=== PATIENT | female | born 1975 | race African-American/Black ===

== ENCOUNTER 2017-08-03 15:54 | Inpatient (IN) | payer OTHER ==
[2017-08-03 18:55] VITALS: BMI 25.2
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
[2017-08-03] MEDS ORDERED: MAG HYDROX/AL HYDROX/SIMETH 30 ML UNIT-DOSE CUP PO PRN (20:53)
[2017-08-03] MEDS ORDERED: LOPERAMIDE HCL 2 MG CAPSULE PO PRN (20:53)
[2017-08-03] MEDS ORDERED: MENTHOL/PHENOL 1 EACH UD MM PRN (20:53)
[2017-08-03] MEDS ORDERED: NICOTINE POLACRILEX 4 MG GUM BUC PRN (20:53)
[2017-08-03] MEDS ORDERED: guaiFENesin/D-METHORPHAN HB 10 ML UNIT-DOSE CUPS PO PRN (20:53)
[2017-08-03] MEDS ORDERED: MAGNESIUM CITRATE 300 ML BOTTLE PO PRN (20:53)
[2017-08-03] MEDS ORDERED: MAGNESIUM HYDROX 2400MG/30ML ORAL SUSPENSION 30 ML CUP PO PRN (20:53)
[2017-08-03] MEDS ORDERED: diphenhydrAMINE HCL 50 MG CAPSULE PO PRN (20:53)
[2017-08-03] MEDS ORDERED: P-EPHED 60MG/TRIPROLIDI 2.5MG TABLET PO PRN (20:53)
[2017-08-03] MEDS ORDERED: COLLOIDAL OATMEAL 1 BAR EACH TP PRN (20:56)
[2017-08-03] MEDS ORDERED: BENZOCAINE 28 GM HEMORRHOIDAL OINTMENT PR PRN (20:58)
[2017-08-03] MEDS: THIAMINE HCL 100 MG TABLET (FP) PO SCH (23:13)
[2017-08-03] MEDS: chlordiazePOXIDE HCL 25 MG CAPSULE PO SCH (23:13)
[2017-08-03] MEDS: LIDOCAINE PATCH REMOVAL MC SCH (23:14)
[2017-08-03] MEDS: RANITIDINE HCL 150 MG TABLET (FP) PO SCH (23:14)
[2017-08-03] MEDS: BACLOFEN 10 MG TABLET (FP) PO SCH (23:14)
[2017-08-03] MEDS: MINERAL OIL/PETROLAT/WATER TOPICAL CREAM 113 GM JAR TP SCH (23:14)
[2017-08-04] MEDS: chlordiazePOXIDE HCL 25 MG CAPSULE PO SCH ×4 (08:23→22:35)
[2017-08-04] MEDS: BACLOFEN 10 MG TABLET (FP) PO SCH ×3 (08:23→22:35)
--- NOTE | 2017-08-04 09:49 | PN ---
S CIWA - CIWA Score Nausea/Vomitin Muscle Tremors: 3 Anxiety: 3 Agitation: 3 Paroxysmal Sweats: 1-Minimal Palms Moist Orientation: 0-Oriented Tacttile Disturbances: 1-Very Mild Itch/Numbness Auditory Disturbances: 1-Very Mild Visual Disturbances: 0-None Headache: 2-Mild CIWA-Ar Total Score: 17 BHS Progress Note (SOAP) Subjective: alert,irritable,anxious interrupted sleep,tremor,pain in the body and back Objective: 08/04/17 09:47 Vital Signs Temperature 98.3 F 08/04/17 06:13 Pulse Rate 55 L 08/04/17 06:13 Respiratory Rate 16 08/04/17 06:13 Blood Pressure 130/90 08/04/17 06:13 O2 Sat by Pulse Oximetry (%) ekg nsr,normal ecg iabs pending Assessment: 08/04/17 09:48 withdrawal symptom Plan: continue detox
[2017-08-04 10:12] LABS: MCH 26.7 pg (25.7-33.7); MCHC 32.5 g/dl (32.0-36.0); MEAN CELL VOLUME 82.1 fl (80-96); MEAN PLT VOLUME 7.4 fl (7.5-11.1); PLATELET COUNT 352 K/MM3 (134-434); RDW 22.4 % (11.6-15.6); WHITE BLOOD COUNT 3.3 K/mm3 (4.0-10.0)
[2017-08-04] MEDS: PRENATAL VITAMINS W/ FOLIC ACID TABLET (FP) PO SCH (10:17)
[2017-08-04] MEDS: FERROUS SO4 325 MG TABLET (FP) PO SCH ×3 (10:17→17:03)
[2017-08-04] MEDS: RANITIDINE HCL 150 MG TABLET (FP) PO SCH ×2 (10:17→22:35)
[2017-08-04] MEDS: NICOTINE 21 MG/24 HOURS TOPICAL PATCH TD SCH (10:17)
[2017-08-04 10:31] LABS: ALBUMIN 3.2 g/dl (3.4-5.0); ANION GAP 9 (8-16); CALCIUM 8.4 mg/dL (8.5-10.1); CO2 27 mmol/L (21-32); GLUCOSE,RANDOM 76 mg/dL (74-106)
[2017-08-04 10:35] LABS: ALK PHOS 61 U/L (45-117); BILIRUBIN,TOTAL 0.4 mg/dL (0.2-1.0); CREATININE 0.6 mg/dL (0.55-1.02); SGOT/AST 15 U/L (15-37); SGPT/ALT 16 U/L (12-78); TOT PROT 6.2 g/dl (6.4-8.2)
--- NOTE | 2017-08-04 11:28 | CONSULT ---
[facility] Psychiatric Consult - Data Date of interview: 08/04/17 Admission source: [facility] Identifying data: First admission to [facility] for this 41 y/o AA female seeking detox treatment on for alcohol,cocaine and marihuana dependence.Patient is ,a mother of two,homeless,unemployed and supported on SSI benefits. Substance Abuse History: Discussed with the patient.Addictions confirmed. Smoking history: Current every day smoker. Have you smoked in the past 12 months: Yes. Aproximately how many cigarettes per day: 40. Cigars Per Day: 0. Hx Chewing Tobacco Use: No. Initiated information on smoking cessation: Yes. 'Breaking Loose' booklet given: 08/03/17. - Substance & Tx. History. Hx Alcohol Use: Yes. Hx Substance Use: Yes. Substance Use Type: Alcohol, Cocaine , Marijuana. Hx Substance Use Treatment: No. - Substances Abused. Alcohol. Route: Oral. Frequency: Daily. Amount used: 3 quarts volka. Age of first use: 21. Date of Last Use: 08/03/17 Medical History: Consistent with a history of anemia,GERD,gastric bypass, chronic back pain and orthosurgery in 2012 (lumbar spine). Psychiatric History: History of psychiatric hospitalizations ([facility], [facility]).Diagnosed with Bipolar Disorder.Used to be on seroquel and trazodone.Patient reports total non-adherence to OPD care.Ms Arroyo endorses a history of multiple suicide attempts (overdoses with medications,self- mutilation). Physical/Sexual Abuse/Trauma History: Not discussed : patient declines. Additional Comment: Urine Drug Screen Results: THC-Marijuana, JILLIAN-Cocaine, MET- Methamphetamine, TCA-Tricyclic Antidepressant.Noted. Mental Status Exam - Mental Status Exam Alert and Oriented to: Time, Place, Person Cognitive Function: Good Patient Appearance: Well Groomed Mood: Hopeful, Euthymic Affect: Normal Range Patient Behavior: Appropriate, Cooperative Speech Pattern: Clear Voice Loudness: Normal Thought Process: Intact, Goal Oriented Thought Disorder: Not Present Hallucinations: Denies Suicidal Ideation: Denies Homicidal Ideation: Denies Insight/Judgement: Poor Sleep: Poorly, Difficulty falling asleep Appetite: Good Muscle strength/Tone: Normal Gait/Station: Normal Psychiatric Findings - Problem List ([place] 1, 2,3) (1) Alcohol dependence with uncomplicated withdrawal Current Visit: Yes Status: Acute (2) Cocaine dependence Current Visit: Yes Status: Acute (3) Marihuana dependence Current Visit: Yes Status: Acute (4) Substance induced mood disorder Current Visit: Yes Status: Acute (5) Anemia Current Visit: Yes Status: Chronic Qualifiers: Anemia type: iron deficiency Iron deficiency anemia type: inadequate dietary iron intake Qualified Code(s): D50.8 - Other iron deficiency anemias; D50.8 - Other iron deficiency anemias (6) Chronic back pain Current Visit: Yes Status: Chronic Qualifiers: Back pain location: low back pain Back pain laterality: bilateral Sciatica presence: without sciatica Qualified Code(s): M54.5 - Low back pain; M54.5 - Low back pain; G89.29 - Other chronic pain; G89.29 - Other chronic pain (7) GERD (gastroesophageal reflux disease) Current Visit: Yes Status: Chronic Qualifiers: Esophagitis presence: without esophagitis Qualified Code(s): K21.9 - Gastro-esophageal reflux disease without esophagitis; K21.9 - Gastro- esophageal reflux disease without esophagitis; K21.9 - Gastro-esophageal reflux disease without esophagitis (8) Irritable bowel syndrome (IBS) Current Visit: Yes Status: Chronic Qualifiers: Irritable bowel syndrome type: with diarrhea Qualified Code(s): K58.0 - Irritable bowel syndrome with diarrhea; K58.0 - Irritable bowel syndrome with diarrhea (9) Insomnia Current Visit: Yes Status: Acute - Initial Treatment Plan Initial Treatment Plan: Psychoeducation.Detoxification.Medications : seroquel 50 mg po hs + trazodone 50 mg po hs.Side effects/benefits are discussed with the patient.She agrees with this careplan.Observation.
[2017-08-04] MEDS: LIDOCAINE 5% TOPICAL PATCH TP SCH (12:09)
[2017-08-04] MEDS: ACETAMINOPHEN 325 MG TABLET (FP) PO PRN ×2 (12:21→17:03)
[2017-08-04 12:28] LABS: HIV 1 & 2 AB NEGATIVE; HIV 1 AGp24 NEGATIVE
[2017-08-04] MEDS: chlordiazePOXIDE HCL 25 MG CAPSULE PO PRN (12:49)
[2017-08-04] MEDS: hydrOXYzine PAMOATE 50 MG CAPSULE (FP) PO PRN ×2 (15:03→20:00)
--- NOTE | 2017-08-04 20:28 | EKG ---
Test Reason : Blood Pressure : / mmHG Vent. Rate : 072 BPM Atrial Rate : 072 BPM P-R Int : 176 ms QRS Dur : 092 ms QT Int : 408 ms P-R-T Axes : 053 068 064 degrees QTc Int : 446 ms N[address]AL SINUS RHYTHM ST ELEVATION, CONSIDER EARLY REPOLARIZATION NO PREVIOUS ECGS AVAILABLE REPEAT EKG IF CLINICALLY INDICATED Confirmed by MADDIE AMAYA MD ([id number]) on 08/04/2017 8:27:42 PM Referred By: Confirmed By:MADDIE AMAYA MD
[2017-08-04] MEDS: THIAMINE HCL 100 MG TABLET (FP) PO SCH (22:35)
[2017-08-04] MEDS: traZODone HCL 50 MG TABLET (FP) PO SCH (22:35)
[2017-08-04] MEDS: QUEtiapine FUMARATE 50 MG TABLET PO SCH (22:35)
[2017-08-04] MEDS: LIDOCAINE PATCH REMOVAL MC SCH (22:37)
[2017-08-04] MEDS: MINERAL OIL/PETROLAT/WATER TOPICAL CREAM 113 GM JAR TP SCH (22:37)
[2017-08-05] MEDS: chlordiazePOXIDE HCL 25 MG CAPSULE PO PRN ×2 (01:09→14:17)
[2017-08-05] MEDS: ACETAMINOPHEN 325 MG TABLET (FP) PO PRN ×5 (01:09→22:21)
[2017-08-05] MEDS: LIDOCAINE VISCOUS 2% ORAL/TOP 20 ML UNIT-DOSE CUP MM PRN ×3 (02:27→22:14)
[2017-08-05] MEDS: chlordiazePOXIDE HCL 25 MG CAPSULE PO SCH ×3 (05:16→17:08)
[2017-08-05] MEDS: BACLOFEN 10 MG TABLET (FP) PO SCH ×3 (05:16→22:13)
[2017-08-05] MEDS: FERROUS SO4 325 MG TABLET (FP) PO SCH ×3 (07:40→17:08)
[2017-08-05] MEDS: hydrOXYzine PAMOATE 50 MG CAPSULE (FP) PO PRN (08:44)
[2017-08-05] MEDS: RANITIDINE HCL 150 MG TABLET (FP) PO SCH ×2 (10:38→22:14)
[2017-08-05] MEDS: PRENATAL VITAMINS W/ FOLIC ACID TABLET (FP) PO SCH (10:38)
[2017-08-05] MEDS: NICOTINE 21 MG/24 HOURS TOPICAL PATCH TD SCH (10:40)
[2017-08-05] MEDS: LIDOCAINE 5% TOPICAL PATCH TP SCH (10:43)
--- NOTE | 2017-08-05 11:07 | PN ---
[facility] CIWA - CIWA Score Nausea/Vomitin Muscle Tremors: 3 Anxiety: 3 Agitation: 3 Paroxysmal Sweats: 1-Minimal Palms Moist Orientation: 0-Oriented Tacttile Disturbances: 1-Very Mild Itch/Numbness Auditory Disturbances: 1-Very Mild Visual Disturbances: 0-None Headache: 2-Mild CIWA-Ar Total Score: 17 BHS Progress Note (SOAP) Subjective: alert,irritable,anxious,interrupted sleep,pain in the body,pain in the upper gum ,dental cavities infected Objective: 08/05/17 11:00 Vital Signs Temperature 98.1 F 08/05/17 09:59 Pulse Rate 76 08/05/17 09:59 Respiratory Rate 16 08/05/17 09:59 Blood Pressure 116/73 08/05/17 09:59 O2 Sat by Pulse Oximetry (%) Laboratory Last Values WBC 3.3 K/mm3 (4.0-10.0) L 08/04/17 07:00 RBC 4.30 M/mm3 (3.60-5.2) 08/04/17 07:00 Hgb 11.5 GM/dL (10.7-15.3) 08/04/17 07:00 Hct 35.3 % (32.4-45.2) 08/04/17 07:00 MCV 82.1 fl (80-96) 08/04/17 07:00 MCH 26.7 pg (25.7-33.7) 08/04/17 07:00 MCHC 32.5 g/dl (32.0-36.0) 08/04/17 07:00 RDW 22.4 % (11.6-15.6) H 08/04/17 07:00 Plt Count 352 K/MM3 (134-434) 08/04/17 07:00 MPV 7.4 fl (7.5-11.1) L 08/04/17 07:00 Sodium 127 mmol/L (136-145) L 08/04/17 07:00 Potassium 4.4 mmol/L (3.5-5.1) 08/04/17 07:00 Chloride 91 mmol/L (98-107) L 08/04/17 07:00 Carbon Dioxide 27 mmol/L (21-32) 08/04/17 07:00 Anion Gap 9 (8-16) 08/04/17 07:00 BUN 9 mg/dL (7-18) 08/04/17 07:00 Creatinine 0.6 mg/dL (0.55-1.02) 08/04/17 07:00 Creat Clearance w eGFR > 60 (>60) 08/04/17 07:00 Random Glucose 76 mg/dL (74-106) 08/04/17 07:00 Calcium 8.4 mg/dL (8.5-10.1) L 08/04/17 07:00 Total Bilirubin 0.4 mg/dL (0.2-1.0) 08/04/17 07:00 AST 15 U/L (15-37) 08/04/17 07:00 ALT 16 U/L (12-78) 08/04/17 07:00 Alkaline Phosphatase 61 U/L (45-117) 08/04/17 07:00 Total Protein 6.2 g/dl (6.4-8.2) L 08/04/17 07:00 Albumin 3.2 g/dl (3.4-5.0) L 08/04/17 07:00 RPR Titer Nonreactive (NONREACTIVE) 08/04/17 07:00 HIV 1&2 Antibody Screen Negative 08/04/17 07:00 HIV P24 Antigen Negative 08/04/17 07:00 Assessment: 08/05/17 11:02 withdrawal symptom Plan: continue detox,pen vee k 500 mgs po q 6 hrs x 7 days,diatician consultation,na 127 hyponatremia,wbc 3.3 leukopenia, repeat cbc,cmp in am
[2017-08-05] MEDS: PENICILLIN V POTASSIUM 500 MG TABLET PO SCH ×3 (11:33→23:20)
[2017-08-05] MEDS: ONDANSETRON *ODT* 4 MG TABLET SL PRN (14:58)
[2017-08-05] MEDS: QUEtiapine FUMARATE 50 MG TABLET PO SCH (22:14)
[2017-08-05] MEDS: traZODone HCL 50 MG TABLET (FP) PO SCH (22:14)
[2017-08-05] MEDS: THIAMINE HCL 100 MG TABLET (FP) PO SCH (22:14)
[2017-08-05] MEDS: chlordiazePOXIDE 5 MG CAPSULE PO SCH (22:14)
[2017-08-05] MEDS: LIDOCAINE PATCH REMOVAL MC SCH (22:15)
[2017-08-05] MEDS: MINERAL OIL/PETROLAT/WATER TOPICAL CREAM 113 GM JAR TP SCH (22:16)
[2017-08-06] MEDS: chlordiazePOXIDE 5 MG CAPSULE PO SCH ×2 (06:02→10:16)
[2017-08-06] MEDS: BACLOFEN 10 MG TABLET (FP) PO SCH (06:02)
[2017-08-06] MEDS: PENICILLIN V POTASSIUM 500 MG TABLET PO SCH ×2 (06:02→12:20)
[2017-08-06] MEDS: ACETAMINOPHEN 325 MG TABLET (FP) PO PRN (06:04)
[2017-08-06] MEDS: FERROUS SO4 325 MG TABLET (FP) PO SCH ×2 (07:44→12:20)
--- NOTE | 2017-08-06 09:39 | PN ---
S Progress Note (SOAP) Subjective: alert,irritable,anxious,interrupted sleep Objective: 08/06/17 09:39 Vital Signs Temperature 97.7 F 08/06/17 06:32 Pulse Rate 56 L 08/06/17 06:32 Respiratory Rate 16 08/06/17 06:32 Blood Pressure 115/67 08/06/17 06:32 O2 Sat by Pulse Oximetry (%) 08/06/17 09:39 08/06/17 09:40 repeat cbc,cmp pending Assessment: 08/06/17 09:40 withdrawal symptom Plan: continue detox
[2017-08-06 09:53] VITALS: BP 92/56; PULSE 76; TEMP 97
[2017-08-06 10:07] LABS: MCH 26.7 pg (25.7-33.7); MCHC 32.5 g/dl (32.0-36.0); MEAN CELL VOLUME 82.3 fl (80-96); MEAN PLT VOLUME 7.8 fl (7.5-11.1); PLATELET COUNT 330 K/MM3 (134-434); RDW 22.2 % (11.6-15.6); WHITE BLOOD COUNT 3.8 K/mm3 (4.0-10.0)
[2017-08-06] MEDS: hydrOXYzine PAMOATE 50 MG CAPSULE (FP) PO PRN (10:16)
[2017-08-06] MEDS: PRENATAL VITAMINS W/ FOLIC ACID TABLET (FP) PO SCH (10:16)
[2017-08-06] MEDS: ONDANSETRON *ODT* 4 MG TABLET SL PRN (10:16)
[2017-08-06] MEDS: NICOTINE 21 MG/24 HOURS TOPICAL PATCH TD SCH (10:16)
[2017-08-06] MEDS: RANITIDINE HCL 150 MG TABLET (FP) PO SCH (10:16)
[2017-08-06] MEDS ORDERED: QUEtiapine FUMARATE 100 MG TABLET (FP) PO STA (10:30)
[2017-08-06] MEDS ORDERED: QUEtiapine FUMARATE 50 MG TABLET PO STA (10:30)
--- NOTE | 2017-08-06 10:46 | PN ---
Psychiatric Progress Note Vital Signs: Vital Signs Period Temp Pulse Resp BP Sys/[place] Pulse Ox Last 24 Hr 96.8 F-98.2 F 56-83 16-18 92-115/56-77 Date of Session: 08/06/17 Chief Complaint:: medications orders HPI: Patient reprots taking priormto admission: Seroquel 100mg po bid. Trazodone 100mg po qhs Current Medications: Active Medications Generic Name Dose Route Start Last Admin Trade Name Freq PRN Reason Stop Dose Admin Acetaminophen 650 mg 08/03/17 20:53 08/06/17 06:04 Tylenol - PO 650 mg Q4H PRN Administration FEVER OR PAIN Al Hydroxide/Mg Hydroxide 30 ml 08/03/17 20:53 Mylanta Oral Suspension - PO Q6H PRN DYSPEPSIA Baclofen 10 mg 08/03/17 22:00 08/06/17 06:02 Lioresal - PO 10 mg TID PRISCILLA Administration Benzocaine 1 applic 08/03/17 20:58 08/05/17 22:17 Americaine Ointment - WI 1 applic PRN PRN Administration PAIN Chlordiazepoxide HCl 10 mg 08/06/17 23:00 Librium - PO 08/07/17 17:01 [id number] PRISCILLA Chlordiazepoxide HCl 25 mg 08/03/17 20:53 08/05/17 14:17 Librium - PO 08/06/17 20:52 25 mg Q4H PRN Administration WITHDRAWAL(CONT SUBST) Chlordiazepoxide HCl 15 mg 08/05/17 23:00 08/06/17 10:16 Librium - PO 08/06/17 17:01 15 mg [id number] PRISCILLA Administration Colloidal Oatmeal 1 applic 08/03/17 20:56 08/04/17 11:41 Aveeno Soap - TP 1 applic DAILY PRN Administration HYGEINE Diphenhydramine HCl 50 mg 08/03/17 20:53 08/05/17 01:09 Benadryl - PO 50 mg HSMR1 PRN Administration INSOMNIA Eucalyptus/Menthol/Phenol/Sorbitol 1 each 08/03/17 20:53 Cepastat Lozenge - MM Q4H PRN SORE THROAT Ferrous Sulfate 325 mg 08/04/17 08:00 08/06/17 07:44 Feosol - PO 325 mg TIDCM PRISCILLA Administration Guaifenesin 10 ml 08/03/17 20:53 Robitussin Dm - PO Q6H PRN COUGH Hydroxyzine Pamoate 50 mg 08/04/17 14:21 08/06/17 10:16 Vistaril - PO 50 mg Q4H PRN Administration ANXIETY Lidocaine 1 patch 08/04/17 10:00 08/05/17 10:43 Lidoderm Patch - TP 1 patch DAILY PRISCILLA Administration Lidocaine HCl 20 ml 08/05/17 02:13 08/05/17 22:14 Xylocaine 2% Viscous Oral - MM 20 ml Q6HPO PRN Administration ORAL PAIN/MOUTH SORES Loperamide HCl 4 mg 08/03/17 20:53 Imodium - PO Q6H PRN DIARRHEA Magnesium Citrate 300 ml 08/03/17 20:53 Citroma - PO Q48H PRN CONSTIPATION Magnesium Hydroxide 30 ml 08/03/17 20:53 Milk Of Magnesia - PO DAILY PRN CONSTIPATION Miscellaneous 1 each 08/03/17 22:00 08/05/17 22:15 Lidoderm Patch Removal MC 1 each DAILY@2200 PRISCILLA Administration Multi-Ingredient Lotion 1 applic 08/03/17 22:00 08/05/17 22:16 Eucerin (Small Jar) - TP 1 applic HS PRISCILLA Administration Nicotine 21 mg 08/04/17 10:00 08/06/17 10:16 Nicoderm Patch - TD 21 mg DAILY PRISCILLA Administration Nicotine Polacrilex 4 mg 08/03/17 20:53 08/05/17 11:15 Nicorette Gum - BUC 4 mg Q2H PRN Administration NICOTINE REPLACEMENT RX Ondansetron HCl 4 mg 08/05/17 14:41 08/06/17 10:16 Zofran Odt - SL 4 mg Q6H PRN Administration NAUSEA AND/OR VOMITING Penicillin V Potassium 500 mg 08/05/17 12:00 08/06/17 06:02 Pen Vee K - PO 500 mg Q6HPO PRISCILLA Administration Multivit/Folic Acid/Iron 1 tab 08/04/17 10:00 08/06/17 10:16 Vitamins (Sjr) - PO 1 tab DAILY PRISCILLA Administration Pseudoephedrine/Triprolidine 1 combo 08/03/17 20:53 08/04/17 12:51 Actifed - PO 1 combo TID PRN Administration NASAL CONGESTION Quetiapine Fumarate 100 mg 08/06/17 22:00 Seroquel - PO BID PRISCILLA Ranitidine HCl 150 mg 08/03/17 22:00 08/06/17 10:16 Zantac - PO 150 mg BID PRISCILLA Administration Thiamine HCl 100 mg 08/03/17 22:00 08/05/17 22:14 Vitamin B1 - PO 100 mg HS PRISCILLA Administration Trazodone HCl 100 mg 08/06/17 22:00 Desyrel - PO HS PRISCILLA Medication(s) Change(s): Seroquel 100mg po bid. Trazodone 100mg po qhs Mental Status Exam - Mental Status Exam Alert and Oriented to: Person Cognitive Function: Fair Patient Appearance: Well Groomed Mood: Anxious Affect: Mood Congruent Patient Behavior: Cooperative Speech Pattern: Appropriate Voice Loudness: Normal Thought Process: Circumstantial, Goal Oriented Thought Disorder: Being Controlled Hallucinations: Denies Suicidal Ideation: Denies Homicidal Ideation: Denies Insight/Judgement: Fair Sleep: Difficulty falling asleep Appetite: Fair Muscle strength/Tone: Normal Gait/Station: Normal Additional Comments: Seroquel 100mg po bid. Trazodone 100mg po qhs Psychiatric Treatment Plan - Problem List (1) Alcohol dependence with uncomplicated withdrawal Current Visit: Yes (2) Cocaine dependence Current Visit: Yes (3) Marihuana dependence Current Visit: Yes (4) Substance induced mood disorder Current Visit: Yes (5) Irritable bowel syndrome (IBS) Current Visit: Yes Qualifiers: Irritable bowel syndrome type: with diarrhea Qualified Code(s): K58.0 - Irritable bowel syndrome with diarrhea; K58.0 - Irritable bowel syndrome with diarrhea (6) Bipolar II disorder Current Visit: Yes (7) S/P gastric bypass Current Visit: Yes Initial treatment plan: Seroquel 100mg po bid. Trazodone 100mg po qhs
[2017-08-06 10:51] LABS: ALBUMIN 3.3 g/dl (3.4-5.0); ALK PHOS 53 U/L (45-117); ANION GAP 8 (8-16); BILIRUBIN,TOTAL 0.2 mg/dL (0.2-1.0); CALCIUM 8.6 mg/dL (8.5-10.1); CO2 27 mmol/L (21-32); CREATININE 0.6 mg/dL (0.55-1.02); GLUCOSE,RANDOM 77 mg/dL (74-106); SGOT/AST 16 U/L (15-37); SGPT/ALT 18 U/L (12-78); TOT PROT 6.4 g/dl (6.4-8.2)
--- NOTE | 2017-08-06 11:05 | PN ---
BHS Progress Note Note: addendum patient is stable for discharge to rehab
--- NOTE | 2017-08-06 11:12 | DS ---
[facility] Detox Discharge Summary Admission Date: 08/03/17 Discharge Date: 08/06/17 - History Present History: Alcohol Dependence Pertinent Past History: gerd chronic back pain s/p gastric by pass hyponatremia - Physical Exam Results Vital Signs: Vital Signs Temperature 97.0 F L 08/06/17 09:52 Pulse Rate 76 08/06/17 09:52 Respiratory Rate 18 08/06/17 09:52 Blood Pressure 92/56 08/06/17 09:52 O2 Sat by Pulse Oximetry (%) Pertinent Admission Physical Exam Findings: withdrawal symptom - Treatment Hospital Course: Detox Protocol Followed, Detoxed Safely, Responded well, Discharged Condition Good, Rehab Referral Accepted (rehab) - Medication Discharge Medications: Ambulatory Orders Iron,Carbonyl/Vit C/Vit B12/FA [Iron 100 Plus Tablet] 1 each PO DAILY 08/03/17 Omeprazole 40 mg PO DAILY 08/03/17 Quetiapine Fumarate [Seroquel -] 50 mg PO BID 08/03/17 - Diagnosis (1) Alcohol dependence with uncomplicated withdrawal Current Visit: Yes Status: Acute (2) Chronic back pain Current Visit: Yes Status: Chronic Qualifiers: Back pain location: low back pain Back pain laterality: bilateral Sciatica presence: without sciatica Qualified Code(s): M54.5 - Low back pain; M54.5 - Low back pain; G89.29 - Other chronic pain; G89.29 - Other chronic pain (3) GERD (gastroesophageal reflux disease) Current Visit: Yes Status: Chronic Qualifiers: Esophagitis presence: without esophagitis Qualified Code(s): K21.9 - Gastro-esophageal reflux disease without esophagitis; K21.9 - Gastro- esophageal reflux disease without esophagitis; K21.9 - Gastro-esophageal reflux disease without esophagitis (4) S/P gastric bypass Current Visit: Yes Status: Resolved (5) Hyponatremia Current Visit: Yes Status: Acute - AMA Did Patient Leave Against Medical Advice: No
[2017-08-06] MEDS: LIDOCAINE 5% TOPICAL PATCH TP SCH (11:16)
[2017-08-06 14:55] LABS: URINE APPEARANCE CLEAR; URINE BILIRUBIN NEGATIVE (NEGATIVE); URINE BLOOD NEGATIVE (NEGATIVE); URINE COLOR LT. YELLOW; URINE GLUCOSE (UA) NEGATIVE (NEGATIVE); URINE KETONE NEGATIVE (NEGATIVE); URINE NITRITE NEGATIVE (NEGATIVE); URINE PROTEIN NEGATIVE (NEGATIVE); URINE UROBILINOGEN 0.2 mg/dL (0.2-1.0)
[2017-08-06 19:17] LABS: URINE LEUK ESTERASE Negative (NEGATIVE)
[2017-08-06] MEDS ORDERED: QUEtiapine FUMARATE 100 MG TABLET (FP) PO SCH (22:00)
[2017-08-06] MEDS ORDERED: QUEtiapine FUMARATE 50 MG TABLET PO SCH (22:00)
[2017-08-06] MEDS ORDERED: traZODone HCL 100 MG TABLET (FP) PO SCH (22:00)
[2017-08-06] MEDS ORDERED: chlordiazePOXIDE HCL 10 MG CAPSULE PO SCH (23:00)
== END 2017-08-06 12:31 | disposition other institution (70) | DRG 774 ==
LOC: YASAS 15:54 → Y6N 22:21
PROVIDERS: ADMIT Internal Medicine; ATTEND Internal Medicine
PROC: HZ2ZZZZ Detoxification Services for Substance Abuse Treatment (ICD-10-PCS; principal; 2017-08-03)
DX: F10.230 Alcohol dependence with withdrawal, uncomplicated (principal); F14.20 Cocaine dependence, uncomplicated; F12.20 Cannabis dependence, uncomplicated; F17.210 Nicotine dependence, cigarettes, uncomplicated; F19.24 Other psychoactive substance dependence with psychoactive substance-induced mood disorder; F31.81 Bipolar II disorder; K21.9 Gastro-esophageal reflux disease without esophagitis; M54.5 Low back pain; G89.29 Other chronic pain; Z98.84 Bariatric surgery status; E87.1 Hypo-osmolality and hyponatremia; K58.9 Irritable bowel syndrome, unspecified; K58.0 Irritable bowel syndrome with diarrhea; D50.8 Other iron deficiency anemias; G47.00 Insomnia, unspecified; L85.3 Xerosis cutis; Z88.6 Allergy status to analgesic agent; Z91.5 Personal history of self-harm
CPT/HCPCS: 36415; 80053; 81003; 85027; 86593; 87389; 93005; 93010; J0475

== ENCOUNTER 2017-08-06 12:45 | Inpatient (IN) | payer OTHER ==
[2017-08-06] MEDS ORDERED: PNEUMOC 13-VAL CONJ-DIP CRM/PF 0.5 ML DISP.SYRIN IM ONE (13:11)
[2017-08-06 13:54] VITALS: BMI 25.7
[2017-08-06] MEDS ORDERED: MAG HYDROX/AL HYDROX/SIMETH 30 ML UNIT-DOSE CUP PO PRN (14:11)
[2017-08-06] MEDS ORDERED: MENTHOL/PHENOL 1 EACH UD MM PRN (14:11)
[2017-08-06] MEDS ORDERED: MAGNESIUM HYDROX 2400MG/30ML ORAL SUSPENSION 30 ML CUP PO PRN (14:11)
[2017-08-06] MEDS ORDERED: ACETAMINOPHEN 325 MG TABLET (FP) PO PRN (14:11)
[2017-08-06] MEDS ORDERED: diphenhydrAMINE HCL 50 MG CAPSULE PO PRN (14:11)
[2017-08-06] MEDS ORDERED: P-EPHED 60MG/TRIPROLIDI 2.5MG TABLET PO PRN (14:11)
[2017-08-06] MEDS ORDERED: guaiFENesin/D-METHORPHAN HB 10 ML UNIT-DOSE CUPS PO PRN (14:11)
[2017-08-06] MEDS ORDERED: LOPERAMIDE HCL 2 MG CAPSULE PO PRN (14:11)
[2017-08-06] MEDS ORDERED: MAGNESIUM CITRATE 300 ML BOTTLE PO PRN (14:11)
[2017-08-06] MEDS ORDERED: COLLOIDAL OATMEAL 1 BAR EACH TP PRN (14:14)
[2017-08-06] MEDS ORDERED: LIDOCAINE VISCOUS 2% ORAL/TOP 20 ML UNIT-DOSE CUP MM PRN (14:57)
--- NOTE | 2017-08-06 16:22 | HP ---
[facility] Rehab Assess/Revision - Admission History Admitted to Rehab from: [facility] [place] Date of Admission to Rehab: 08/06/17 - Vital signs Vital Signs: Vital Signs Period Temp Pulse Resp BP Sys/[place]raham Pulse Ox Last 24 Hr 98.4 F 84 16 111/72 - Findings Detox History & Physical reviewed: Yes Concur with findings: Yes Comments/Additional Findings: transferred from detox to rehab admission as per protocol
--- NOTE | 2017-08-06 16:23 | HP ---
Admission [facility] - [facility] Allergies/Adverse Reactions: Allergies Allergy/AdvReac Type Severity Reaction Status Date / Time oxycodone AdvReac Verified 08/03/17 20:37 Patient History - Patient Medical History Hx Anemia: Yes Hx Asthma: No Hx Chronic Obstructive Pulmonary Disease (COPD): No Hx Cancer: No Hx Cardiac Disorders: No Hx Congestive Heart Failure: No Hx Hypertension: No Hx Hypercholesterolemia: No Hx Pacemaker: No HX Cerebrovascular Accident: No Hx Seizures: No Hx Dementia: No Hx Diabetes: No Hx Gastrointestinal Disorders: No Hx Liver Disease: No Hx Genitourinary Disorders: No Hx Sexually Transmitted Disorders: No Hx Renal Disease (ESRD): No Hx Thyroid Disease: No Hx Human Immunodeficiency Virus (HIV): No Hx Hepatitis C: No Hx Depression: No Hx Suicide Attempt: Yes (cutting wrist Jun 2017 and OD on pills 2010) Hx Bipolar Disorder: Yes Hx Schizophrenia: No - Patient Surgical History Past Surgical History: Yes Hx Neurologic Surgery: No Hx Cataract Extraction: No Hx Cardiac Surgery: No Hx Lung Surgery: No Hx Breast Surgery: No Hx Breast Biopsy: No Hx Abdominal Surgery: Yes (gastric bypass 2006) Hx Appendectomy: No Hx Cholecystectomy: No Hx Genitourinary Surgery: No Hx Section: No Hx Orthopedic Surgery: Yes (2011 lumbar) Hx Hysterectomy: No Anesthesia Reaction: No - PPD History Previous Implant?: Yes Documented Results: Negative w/proof Implanted On Prior [facility] Admission?: Yes Date: 08/05/17 Results: 0mm - Reproductive History Last Menstrual Period: 07/26/17 - Smoking Cessation Smoking history: Current every day smoker Have you smoked in the past 12 months: Yes Aproximately how many cigarettes per day: 40 Cigars Per Day: 0 Hx Chewing Tobacco Use: No Initiated information on smoking cessation: Yes 'Breaking Loose' booklet given: 08/06/17 - Substances Abused Alcohol Route: Oral Frequency: Daily Amount used: 3 quart of vodka Age of first use: 21 Date of Last Use: 08/03/17 Marijuana/Hashish Route: Smoking Frequency: Daily Amount used: $20-30 Age of first use: 21 Date of Last Use: 08/03/17 Crack Route: Smoking Frequency: Daily Amount used: $200 Age of first use: 23 Date of Last Use: 08/03/17 Family Disease History - Family Disease History Family Disease History: Diabetes: Father (), Heart Disease: Father, Mother, CA: Sister, Other: Father Admission Physical Exam BHS - Vital Signs Vital Signs: Vital Signs - 24 hr 08/06/17 13:51 Temperature 98.4 F Pulse Rate 84 Respiratory 16 Rate Blood Pressure 111/72 BHS Breath Alcohol Content Breath Alcohol Content: 0 Inpatient Rehab Admission - Initial Determination Are CD services needed?: Yes Free of communicable disease: Yes Not in need of hospitalization: Yes - Rehab Admission Criteria Previous failed treatment: Yes Poor recovery environment: Yes Comorbidities: Yes Lacks judgement: No Patient is meeting Inpatient Rehab admission criteria:: Yes
[2017-08-06] MEDS ORDERED: ONDANSETRON *ODT* 4 MG TABLET SL ONE (18:49)
[2017-08-06] MEDS: THIAMINE HCL 100 MG TABLET (FP) PO SCH (21:33)
[2017-08-06] MEDS: BACLOFEN 10 MG TABLET (FP) PO SCH (21:35)
[2017-08-06] MEDS: RANITIDINE HCL 150 MG TABLET (FP) PO SCH (21:35)
[2017-08-06] MEDS: FERROUS SO4 325 MG TABLET (FP) PO SCH (21:36)
[2017-08-06] MEDS: MINERAL OIL/PETROLAT/WATER TOPICAL CREAM 113 GM JAR TP SCH (21:37)
[2017-08-06] MEDS: traZODone HCL 100 MG TABLET (FP) PO SCH (22:53)
[2017-08-06] MEDS: QUEtiapine FUMARATE 100 MG TABLET (FP) PO SCH (22:53)
[2017-08-07] MEDS: IBUPROFEN 400 MG TABLET (FP) PO PRN ×2 (01:10→10:23)
[2017-08-07] MEDS: FERROUS SO4 325 MG TABLET (FP) PO SCH ×3 (06:30→22:30)
[2017-08-07] MEDS: BACLOFEN 10 MG TABLET (FP) PO SCH ×3 (06:30→22:00)
[2017-08-07] MEDS ORDERED: PRENATAL VITAMINS W/ FOLIC ACID TABLET (FP) PO SCH (10:00)
[2017-08-07] MEDS ORDERED: NICOTINE 14 MG/24 HOURS TOPICAL PATCH TD SCH (10:00)
[2017-08-07] MEDS ORDERED: BENZOCAINE 28 GM HEMORRHOIDAL OINTMENT PR PRN (10:19)
[2017-08-07] MEDS: RANITIDINE HCL 150 MG TABLET (FP) PO SCH ×2 (10:20→22:00)
[2017-08-07] MEDS: QUEtiapine FUMARATE 100 MG TABLET (FP) PO SCH ×2 (10:20→22:30)
[2017-08-07] MEDS ORDERED: NICOTINE POLACRILEX 2 MG GUM BUC PRN (10:27)
[2017-08-07] MEDS ORDERED: LIDOCAINE 5% TOPICAL PATCH TP SCH (10:30)
[2017-08-07] MEDS ORDERED: IBUPROFEN 400 MG TABLET (FP) PO PRN (10:59)
--- NOTE | 2017-08-07 11:05 | PN ---
BHS Progress Note (SOAP) Subjective: Pt. was seen by nurse on the floor. Pt. claims she tripped and fell hit her rt. leg & her face contacted the floor. Objective: 08/07/17 11:02 Vital Signs - 8 hr 08/07/17 08/07/17 08/07/17 03:35 07:26 10:40 Temperature 98.1 F 98.2 F Pulse Rate 60 97 H Respiratory 16 18 20 Rate Blood Pressure 123/78 119/79 Exam : No bruises, no ecchymosis on face Right leg no injury Assessment: 08/07/17 11:02 Fall with Head injury Plan: fall protocol #1
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
[2017-08-07] MEDS ORDERED: PNEUMOCOCCAL 23 VACCINE 0.5 ML VIAL IM ONE (12:00)
[2017-08-07] MEDS ORDERED: FLU VACCINE QUAD 60 MCG/0.5 ML (MDV 17-18) IM ONE (12:00)
[2017-08-07] MEDS: traZODone HCL 100 MG TABLET (FP) PO SCH (22:00)
[2017-08-07] MEDS: MINERAL OIL/PETROLAT/WATER TOPICAL CREAM 113 GM JAR TP SCH (22:00)
[2017-08-07] MEDS ORDERED: LIDOCAINE PATCH REMOVAL MC SCH (22:00)
[2017-08-07] MEDS: THIAMINE HCL 100 MG TABLET (FP) PO SCH (22:30)
[2017-08-08] MEDS: RANITIDINE HCL 150 MG TABLET (FP) PO SCH ×2 (06:00→18:35)
[2017-08-08] MEDS: FERROUS SO4 325 MG TABLET (FP) PO SCH ×3 (06:00→18:35)
[2017-08-08] MEDS: BACLOFEN 10 MG TABLET (FP) PO SCH ×3 (06:36→21:35)
[2017-08-08] MEDS ORDERED: COLLOIDAL OATMEAL 1 BAR EACH TP PRN (09:47)
[2017-08-08] MEDS ORDERED: diphenhydrAMINE HCL 50 MG CAPSULE PO PRN (09:47)
[2017-08-08] MEDS ORDERED: BENZOCAINE 28 GM HEMORRHOIDAL OINTMENT PR PRN (09:48)
[2017-08-08] MEDS ORDERED: guaiFENesin/D-METHORPHAN HB 10 ML UNIT-DOSE CUPS PO PRN (09:50)
[2017-08-08] MEDS ORDERED: LOPERAMIDE HCL 2 MG CAPSULE PO PRN (09:54)
[2017-08-08] MEDS ORDERED: MAG HYDROX/AL HYDROX/SIMETH 30 ML UNIT-DOSE CUP PO PRN (09:54)
[2017-08-08] MEDS ORDERED: MAGNESIUM CITRATE 300 ML BOTTLE PO PRN (09:54)
[2017-08-08] MEDS ORDERED: MAGNESIUM HYDROX 2400MG/30ML ORAL SUSPENSION 30 ML CUP PO PRN (09:55)
[2017-08-08] MEDS ORDERED: P-EPHED 60MG/TRIPROLIDI 2.5MG TABLET PO PRN (09:56)
[2017-08-08] MEDS ORDERED: NICOTINE POLACRILEX 2 MG GUM BUC PRN (09:59)
[2017-08-08] MEDS ORDERED: QUEtiapine FUMARATE 100 MG TABLET (FP) PO SCH (10:00)
[2017-08-08] MEDS ORDERED: NICOTINE 21 MG/24 HOURS TOPICAL PATCH TD SCH (10:00)
[2017-08-08] MEDS ORDERED: PT OWN MED DRAWER 7, Y5N ONE (10:06)
[2017-08-08] MEDS: LIDOCAINE 5% TOPICAL PATCH TP SCH (12:07)
[2017-08-08] MEDS: NICOTINE 21 MG/24 HOURS TOPICAL PATCH TD SCH (12:08)
[2017-08-08] MEDS: QUEtiapine FUMARATE 100 MG TABLET (FP) PO SCH ×2 (12:09→21:35)
[2017-08-08] MEDS: PRENATAL VITAMINS W/ FOLIC ACID TABLET (FP) PO SCH (12:09)
[2017-08-08] MEDS: CYCLOBENZAPRINE HCL 10 MG TABLET (FP) PO PRN ×2 (12:19→21:35)
[2017-08-08] MEDS: LIDOCAINE VISCOUS 2% ORAL/TOP 20 ML UNIT-DOSE CUP MM PRN (18:35)
[2017-08-08] MEDS: ACETAMINOPHEN 325 MG TABLET (FP) PO PRN (18:38)
[2017-08-08] MEDS: MINERAL OIL/PETROLAT/WATER TOPICAL CREAM 113 GM JAR TP SCH (21:34)
[2017-08-08] MEDS: LIDOCAINE PATCH REMOVAL MC SCH (21:34)
[2017-08-08] MEDS: traZODone HCL 100 MG TABLET (FP) PO SCH (21:34)
[2017-08-08] MEDS: THIAMINE HCL 100 MG TABLET (FP) PO SCH (21:35)
[2017-08-09] MEDS: IBUPROFEN 400 MG TABLET (FP) PO PRN ×2 (00:32→17:25)
[2017-08-09] MEDS: BACLOFEN 10 MG TABLET (FP) PO SCH ×3 (06:59→21:35)
[2017-08-09] MEDS: RANITIDINE HCL 150 MG TABLET (FP) PO SCH ×2 (06:59→17:26)
[2017-08-09] MEDS: FERROUS SO4 325 MG TABLET (FP) PO SCH ×3 (07:18→17:25)
[2017-08-09] MEDS: QUEtiapine FUMARATE 100 MG TABLET (FP) PO SCH ×2 (09:56→21:35)
[2017-08-09] MEDS: NICOTINE 21 MG/24 HOURS TOPICAL PATCH TD SCH (09:56)
[2017-08-09] MEDS: PRENATAL VITAMINS W/ FOLIC ACID TABLET (FP) PO SCH (09:56)
[2017-08-09] MEDS: LIDOCAINE 5% TOPICAL PATCH TP SCH (09:57)
[2017-08-09 11:14] LABS: MCH 27.3 pg (25.7-33.7); MEAN CELL VOLUME 82.6 fl (80-96); PLATELET COUNT 351 K/MM3 (134-434); RDW 21.8 % (11.6-15.6); WHITE BLOOD COUNT 4.1 K/mm3 (4.0-10.0)
[2017-08-09 11:21] LABS: CALCIUM 8.7 mg/dL (8.5-10.1)
[2017-08-09 11:27] LABS: ALBUMIN 3.5 g/dl (3.4-5.0); ALK PHOS 52 U/L (45-117); ANION GAP 8 (8-16); BILIRUBIN,TOTAL 0.3 mg/dL (0.2-1.0); CO2 27 mmol/L (21-32); CREATININE 0.5 mg/dL (0.55-1.02); GLUCOSE,RANDOM 81 mg/dL (74-106); SGOT/AST 14 U/L (15-37); SGPT/ALT 17 U/L (12-78); TOT PROT 6.5 g/dl (6.4-8.2)
[2017-08-09] MEDS: PENICILLIN V POTASSIUM 500 MG TABLET PO SCH ×3 (12:09→23:50)
[2017-08-09 12:28] LABS: PLATELET ESTIMATE ADEQUATE (NORMAL)
[2017-08-09 12:29] LABS: ANISOCYTOSIS 2+; MACROCYTOSIS 3+
[2017-08-09] MEDS: CYCLOBENZAPRINE HCL 10 MG TABLET (FP) PO PRN (14:44)
[2017-08-09] MEDS: LIDOCAINE VISCOUS 2% ORAL/TOP 20 ML UNIT-DOSE CUP MM PRN (14:45)
[2017-08-09] MEDS ORDERED: PT OWN MED DRAWER 7, Y5N ONE (17:24)
[2017-08-09] MEDS: traZODone HCL 100 MG TABLET (FP) PO SCH (21:35)
[2017-08-09] MEDS: THIAMINE HCL 100 MG TABLET (FP) PO SCH (21:35)
[2017-08-09] MEDS: MINERAL OIL/PETROLAT/WATER TOPICAL CREAM 113 GM JAR TP SCH (21:36)
[2017-08-09] MEDS: LIDOCAINE PATCH REMOVAL MC SCH (21:36)
[2017-08-10] MEDS: IBUPROFEN 400 MG TABLET (FP) PO PRN ×2 (01:06→09:32)
[2017-08-10] MEDS ORDERED: PT OWN MED DRAWER 7, Y5N ONE ×3 (06:01→12:11)
[2017-08-10] MEDS: BACLOFEN 10 MG TABLET (FP) PO SCH ×3 (06:49→21:26)
[2017-08-10] MEDS: RANITIDINE HCL 150 MG TABLET (FP) PO SCH ×2 (06:49→19:04)
[2017-08-10] MEDS: PENICILLIN V POTASSIUM 500 MG TABLET PO SCH ×3 (06:50→17:30)
[2017-08-10] MEDS: FERROUS SO4 325 MG TABLET (FP) PO SCH ×3 (07:05→17:30)
[2017-08-10] MEDS: LIDOCAINE 5% TOPICAL PATCH TP SCH (09:29)
[2017-08-10] MEDS: NICOTINE 21 MG/24 HOURS TOPICAL PATCH TD SCH (09:30)
[2017-08-10] MEDS: QUEtiapine FUMARATE 100 MG TABLET (FP) PO SCH ×2 (09:30→21:27)
[2017-08-10] MEDS: PRENATAL VITAMINS W/ FOLIC ACID TABLET (FP) PO SCH (09:30)
--- NOTE | 2017-08-10 12:10 | PN ---
BHS Progress Note (SOAP) Subjective: patient c/o continued pain left should with decreased ROM, wearing sling tylenol /advil prn not effective Objective: 08/10/17 12:10 Vital Signs Period Temp Pulse Resp BP Sys/Graham Pulse Ox Last 24 Hr 97.9 F 80 17-18 113/74 Laboratory Tests 08/09/17 08/09/17 07:30 07:30 WBC 4.1 RBC 4.22 Hgb 11.5 Hct 34.8 MCV 82.6 MCH 27.3 MCHC 33.0 RDW 21.8 H Plt Count 351 MPV 8.0 Platelet Estimate Adequate Anisocytosis 2+ Macrocytosis 3+ Rouleaux 1+ Sodium 130 L Potassium 5.1 Chloride 95 L Carbon Dioxide 27 Anion Gap 8 BUN 10 Creatinine 0.5 L Creat Clearance w eGFR > 60 Random Glucose 81 Calcium 8.7 Total Bilirubin 0.3 D AST 14 L ALT 17 Alkaline Phosphatase 52 Total Protein 6.5 Albumin 3.5 chart reviewed , imaging reviewed Assessment: Tender on palpation and movement left shoulder, arm in sling, limited rom, pateint tearful, does not want to stay in rehab but does not have any place to go. Medical care from [facility]. r/o shoulder separation Plan: d/w Dr. Lundberg from [facility] ED - will resend to complete orthopedic evaluation and possible imaging of left shoulder. Pain medication ATc ordered.
[2017-08-10] MEDS: METHYL SALICYLATE/MENTHOL OINT 30 GM TUBE TP SCH ×2 (14:38→21:27)
--- NOTE | 2017-08-10 14:46 | PN ---
[facility] Progress Note Note: Patient obtained orthopedic appointment 09/04 at [facility] [place]. Patient requesting d/c in AM. Ed notified
[2017-08-10] MEDS: ACETAMINOPHEN 325 MG TABLET (FP) PO PRN (15:48)
[2017-08-10] MEDS: LIDOCAINE VISCOUS 2% ORAL/TOP 20 ML UNIT-DOSE CUP MM PRN (15:48)
--- NOTE | 2017-08-10 17:04 | PN ---
Psychiatric Progress Note Vital Signs: Vital Signs Period Temp Pulse Resp BP Sys/Graham Pulse Ox Last 24 Hr 97.9 F 80 17-18 113/74 Date of Session: 08/10/17 Chief Complaint:: Readmission.Discharge visit. HPI: Patient addressed Alcohol,Cannabis and Cocaine dependence comorbid with Bipolar disorder. ROS: L shoulder injury. Current Medications: Active Medications Generic Name Dose Route Start Last Admin Trade Name Freq PRN Reason Stop Dose Admin Acetaminophen 650 mg 08/08/17 09:44 08/10/17 15:48 Tylenol - PO 650 mg Q4H PRN Administration FEVER OR PAIN Al Hydroxide/Mg Hydroxide 30 ml 08/08/17 09:54 Mylanta Oral Suspension - PO Q6H PRN DYSPEPSIA Baclofen 10 mg 08/08/17 14:00 08/10/17 13:19 Lioresal - PO 10 mg TID PRISCILLA Administration Benzocaine 1 applic 08/08/17 09:48 08/08/17 12:07 Americaine Ointment - DE 1 applic PRN PRN Administration PAIN Colloidal Oatmeal 1 applic 08/08/17 09:47 08/10/17 10:36 Aveeno Soap - TP 1 bar DAILY PRN Administration HYGEINE Cyclobenzaprine HCl 10 mg 08/08/17 11:15 08/09/17 14:44 Flexeril - PO 08/12/17 23:59 10 mg TID PRN Administration MUSCLE SPASMS Diphenhydramine HCl 50 mg 08/08/17 09:47 Benadryl - PO HSMR1 PRN FOR ITCHING Ferrous Sulfate 325 mg 08/08/17 12:00 08/10/17 11:58 Feosol - PO 325 mg TIDCM PRISCILLA Administration Guaifenesin 10 ml 08/08/17 09:50 Robitussin Dm - PO Q6H PRN COUGH Lidocaine 1 patch 08/08/17 10:00 08/10/17 09:29 Lidoderm Patch - TP 1 patch DAILY PRISCILLA Administration Lidocaine HCl 20 ml 08/08/17 09:50 08/10/17 15:48 Xylocaine 2% Viscous Oral - MM 20 ml Q6HPO PRN Administration ORAL PAIN/MOUTH SORES Loperamide HCl 4 mg 08/08/17 09:54 Imodium - PO Q6H PRN DIARRHEA Magnesium Citrate 300 ml 08/08/17 09:54 Citroma - PO Q48H PRN CONSTIPATION Magnesium Hydroxide 30 ml 08/08/17 09:55 Milk Of Magnesia - PO DAILY PRN CONSTIPATION Methyl Salicylate 1 applic 08/10/17 13:00 08/10/17 14:38 Reji-Madsen - TP 1 applic BID PRISCILLA Administration Miscellaneous 1 each 08/08/17 22:00 08/09/17 21:36 Lidoderm Patch Removal MC 1 each DAILY@2200 PRISCILLA Administration Multi-Ingredient Lotion 1 applic 08/08/17 22:00 08/09/17 21:36 Eucerin (Small Jar) - TP 1 applic HS PRISCILLA Administration Naproxen 500 mg 08/10/17 22:00 Naprosyn - PO BID PRISCILLA Nicotine 21 mg 08/08/17 10:00 08/10/17 09:30 Nicoderm Patch - TD 21 mg DAILY PRISCILLA Administration Nicotine Polacrilex 2 mg 08/08/17 09:59 Nicorette Gum - BUC Q2H PRN NICOTINE REPLACEMENT RX Penicillin V Potassium 500 mg 08/09/17 12:00 08/10/17 11:59 Pen Vee K - PO 500 mg Q6HPO PRISCILLA Administration Multivit/Folic Acid/Iron 1 tab 08/08/17 10:45 08/10/17 09:30 Vitamins (Sjr) - PO 1 tab DAILY PRISCILLA Administration Pseudoephedrine/Triprolidine 1 combo 08/08/17 09:56 Actifed - PO TID PRN NASAL CONGESTION Quetiapine Fumarate 100 mg 08/08/17 10:45 08/10/17 09:30 Seroquel - PO 100 mg BID PRISCILLA Administration Ranitidine HCl 150 mg 08/08/17 16:30 08/10/17 06:49 Zantac - PO 150 mg BID@0700,1630 PRISCILLA Administration Thiamine HCl 100 mg 08/08/17 22:00 08/09/17 21:35 Vitamin B1 - PO 100 mg HS PRISCILLA Administration Trazodone HCl 100 mg 08/08/17 22:00 08/09/17 21:35 Desyrel - PO 100 mg HS PRISCILLA Administration Current Side Effect: No Lab tests ordered: No Lab tests reviewed: Yes Provider note:: Patient was transferred to medical ER on 08/07/17 after she fell down in her room and injured L shoulder.She was readmitted to our unit after evaluation(Xray,MRI,Orthopedic consult).Patient was placed on sling on L shoulder and sent back to inpatient rehabilitation same day. She will be discharge tomorrow since she needs further orthopedic special care.Patient will continue to address her issues at [facility] in [facility]. Patient identifies areas of difficulties and behaviors which contribute to relapse.Supportive therapy provided focusing on relapse prevention.patient will continue current medications as per plan,Scripts provided. Patient is stable for discharge tomorrow 08/11/17. Total face to face time:: 30 Mental Status Exam - Mental Status Exam Alert and Oriented to: Time, Place, Person Cognitive Function: Grossly Intact Patient Appearance: Unkempt Mood: Euthymic Affect: Mood Congruent, Labile Patient Behavior: Cooperative Speech Pattern: Clear Voice Loudness: Normal Thought Process: Goal Oriented Thought Disorder: Not Present Hallucinations: Denies Suicidal Ideation: Denies Homicidal Ideation: Denies Insight/Judgement: Fair Sleep: Fair Appetite: Good Muscle strength/Tone: Normal Gait/Station: Normal Psychiatric Treatment Plan - Problem List (1) Anemia Current Visit: No Qualifiers: Anemia type: iron deficiency Iron deficiency anemia type: inadequate dietary iron intake Qualified Code(s): D50.8 - Other iron deficiency anemias; D50.8 - Other iron deficiency anemias (2) Chronic back pain Current Visit: Yes Qualifiers: Back pain location: low back pain Back pain laterality: bilateral Sciatica presence: without sciatica Qualified Code(s): M54.5 - Low back pain; M54.5 - Low back pain; G89.29 - Other chronic pain; G89.29 - Other chronic pain (3) Cocaine dependence Current Visit: No (4) Dry skin dermatitis Current Visit: No (5) GERD (gastroesophageal reflux disease) Current Visit: No Qualifiers: Esophagitis presence: without esophagitis Qualified Code(s): K21.9 - Gastro-esophageal reflux disease without esophagitis; K21.9 - Gastro- esophageal reflux disease without esophagitis; K21.9 - Gastro-esophageal reflux disease without esophagitis (6) Irritable bowel syndrome (IBS) Current Visit: No Qualifiers: Irritable bowel syndrome type: with diarrhea Qualified Code(s): K58.0 - Irritable bowel syndrome with diarrhea; K58.0 - Irritable bowel syndrome with diarrhea (7) Bipolar II disorder Current Visit: Yes (8) Alcohol dependence Current Visit: Yes
[2017-08-10] MEDS: THIAMINE HCL 100 MG TABLET (FP) PO SCH (21:26)
[2017-08-10] MEDS: traZODone HCL 100 MG TABLET (FP) PO SCH (21:26)
[2017-08-10] MEDS: LIDOCAINE PATCH REMOVAL MC SCH (21:28)
[2017-08-10] MEDS: MINERAL OIL/PETROLAT/WATER TOPICAL CREAM 113 GM JAR TP SCH (21:28)
[2017-08-10] MEDS: NAPROXEN 500 MG TABLET (FP) PO SCH (21:29)
[2017-08-11] MEDS: PENICILLIN V POTASSIUM 500 MG TABLET PO SCH ×2 (00:51→06:24)
[2017-08-11] MEDS: ACETAMINOPHEN 325 MG TABLET (FP) PO PRN (00:51)
[2017-08-11] MEDS: RANITIDINE HCL 150 MG TABLET (FP) PO SCH (06:24)
[2017-08-11] MEDS: BACLOFEN 10 MG TABLET (FP) PO SCH (06:24)
[2017-08-11 07:00] VITALS: BP 98/61; PULSE 70; TEMP 98.1
[2017-08-11] MEDS: FERROUS SO4 325 MG TABLET (FP) PO SCH (07:30)
[2017-08-11] MEDS ORDERED: PT OWN MED DRAWER 7, Y5N ONE ×2 (08:43→09:48)
[2017-08-11] MEDS: QUEtiapine FUMARATE 100 MG TABLET (FP) PO SCH (09:45)
[2017-08-11] MEDS: LIDOCAINE 5% TOPICAL PATCH TP SCH (09:46)
[2017-08-11] MEDS: NICOTINE 21 MG/24 HOURS TOPICAL PATCH TD SCH (09:46)
[2017-08-11] MEDS: NAPROXEN 500 MG TABLET (FP) PO SCH (09:47)
[2017-08-11] MEDS: METHYL SALICYLATE/MENTHOL OINT 30 GM TUBE TP SCH (09:47)
[2017-08-11] MEDS: PRENATAL VITAMINS W/ FOLIC ACID TABLET (FP) PO SCH (09:49)
== END 2017-08-11 10:10 | disposition home or self-care (01) | DRG 772 ==
LOC: YASAS 12:45 → Y3E 12:46 → UNDODISIN 08-07 15:42
PROVIDERS: ADMIT Psychiatry & Neurology Psychiatry; ATTEND Psychiatry & Neurology Psychiatry
PROC: HZ42ZZZ Group Counseling for Substance Abuse Treatment, Cognitive-Behavioral (ICD-10-PCS; principal; 2017-08-06)
DX: F11.20 Opioid dependence, uncomplicated (principal); F14.20 Cocaine dependence, uncomplicated; F31.81 Bipolar II disorder; M54.5 Low back pain; G89.29 Other chronic pain; D50.8 Other iron deficiency anemias; K58.0 Irritable bowel syndrome with diarrhea; L85.3 Xerosis cutis
CPT/HCPCS: 36415; 80053; 85027; J0475

== ENCOUNTER 2017-08-07 12:40 | Emergency (ER) | payer OTHER ==
[2017-08-07 13:04] VITALS: BP 123/78; PULSE 60; TEMP 98.1; BMI 24.3
--- NOTE | 2017-08-07 14:03 | PDOC ---
History of Present Illness - General Chief Complaint: Injury Stated Complaint: FALL Time Seen by Provider: 08/07/17 13:27 History Source: Patient Exam Limitations: No Limitations - History of Present Illness Initial Comments: 08/07/17 14:23 Chief complaint: Fall pain to right lower leg left shoulder and lower back and left side of face/head History of present illness: Patient is a 41 year old female sent here from [facility] due to patient tripping over edge of bed falling hitting her left shoulder left side of her face and head and hitting her right lower anterior leg on something unsure what. Patient reports having a bruise and slight tenderness of her right lower leg that is aching, lower back pain without radiation down legs or any incontinency or saddle anesthesia. He has a history of GERD, gastric bypass, renal calculi, chronic lower back pain, and iron deficiency anemia IBS, renal calculi, bipolar d/o and alcohol and cocaine use disorder here. Denies any nausea, vomiting, or any change in vision or level of alertness, dizziness or hemotympanum in or headache. Patient does report tenderness to her left side of her face however patient also has a toothache on left side. Patient does not have any facial swelling. He does not have any trismus. He reports having pain in her left shoulder and lower back that is currently an 8 out of 10 aching in nature. Patient denies receiving anything for pain prior to arrival here. Patient denies any chance of had tubal ligation. 08/07/17 14:23 08/07/17 15:25 08/07/17 16:37 Occurred: reports: this morning Severity: reports: moderate Pain Location: reports: back (lower ), face (left side of face), head (left side ), lower extremity (rt. anterior leg), upper extremity (left shoulder ) Method of Injury: Yes: fall Modifying Factors: improves with: None Loss of Consciousness: no loss of consciousness Associated Symptoms (Fall): denies symptoms Past History - Past Medical History Allergies/Adverse Reactions: Allergies Allergy/AdvReac Type Severity Reaction Status Date / Time oxycodone AdvReac Verified 08/07/17 13:06 Home Medications: Ambulatory Orders Quetiapine Fumarate [Seroquel -] 100 mg PO BID 08/03/17 Baclofen [Lioresal -] 10 mg PO TID tablet 08/06/17 Ferrous Sulfate [Feosol] 325 mg PO TID 08/06/17 Lidocaine 2% Viscous Oral [Xylocaine 2% Viscous Oral -] 20 ml MM Q6HPO PRN #0 5ml 08/06/17 Lidocaine [Aspercreme] 1 each TP DAILY 08/06/17 Penicillin V Potassium [Pen Vee K -] 500 mg PO Q6HPO tablet 08/06/17 Quetiapine Fumarate [Seroquel] 100 mg PO BID 08/06/17 Ranitidine [Zantac -] 150 mg PO BID tablet 08/06/17 Trazodone HCl 100 mg PO HS 08/06/17 Anemia: Yes Asthma: No Cancer: No Cardiac Disorders: No CVA: No COPD: No CHF: No Dementia: No Diabetes: No GI Disorders: Yes (gerd) Disorders: No HTN: No Hypercholesterolemia: No Kidney Stones: Yes (2014 OR 2015 not sure) Liver Disease: No Psychiatric Problems: Yes (bipolar d/o ) Seizures: No Thyroid Disease: No - Surgical History Abdominal Surgery: Yes (gastric bypass 2006) Appendectomy: No Cardiac Surgery: No Cholecystectomy: No Lung Surgery: No Neurologic Surgery: No Orthopedic Surgery: Yes (2011 lumbar) - Reproductive History PID: No - Suicide/Smoking/Psychosocial Hx Smoking History: Current every day smoker Have you smoked in the past 12 months: No Number of Cigarettes Smoked Daily: 20 Cigars Per Day: 0 Information on smoking cessation initiated: No 'Breaking Loose' booklet given: 08/06/17 Hx Alcohol Use: No Drug/Substance Use Hx: No Substance Use Type: Alcohol, Marijuana Hx Substance Use Treatment: Yes Trauma Specific PMHX - Complaint Specific PMHX Arthritis: No Review of Systems - Review of Systems Able to Perform ROS?: Yes Constitutional: No: Symptoms Reported HEENTM: No: Symptoms Reported Respiratory: No: Symptoms reported Cardiac (ROS): No: Symptoms Reported ABD/GI: No: Symptoms Reported : No: Symptoms Reported Musculoskeletal: Yes: Back Pain (lower back), Joint Pain (left anterior lower leg pain, left shoulder ). No: Joint Swelling, Muscle Weakness, Neck Pain Integumentary: Yes: Bruising (minimal faint rt. anterior lower leg approx quarter size) Neurological: No: Symptoms reported *Physical Exam - Vital Signs Last Vital Signs Temp Pulse Resp BP Pulse Ox 98.1 F 60 18 123/78 100 08/07/17 12:40 08/07/17 12:40 08/07/17 12:40 08/07/17 12:40 08/07/17 12:40 - Physical Exam General Appearance: Yes: Appropriately Dressed HEENT: positive: EOMI, DINO, Normal ENT Inspection, Other (multiple missing teeth upper and lower ) Neck: negative: Tender, Lymphadenopathy (R), Lymphadenopathy (L), Rigidity, Tender lateral, Tender midline Respiratory/Chest: positive: Lungs Clear, Normal Breath Sounds. negative: Chest Tender, Respiratory Distress Cardiovascular: positive: Regular Rhythm, Regular Rate, S1, S2 Musculoskeletal: positive: Normal Inspection, Decreased Range of Motion (with anterior flexion from waist ). negative: CVA Tenderness, CVA Tenderness (R), CVA Tenderness (L), Vertebral Tenderness Extremity: positive: Normal Capillary Refill, Normal Inspection, Tender (left lateral shoulder ). negative: Normal Range of Motion (left shoulder slightly decreased range of motion left shoulder ), Swelling Integumentary: positive: Bruising (quarter size faint rt. anterior lower leg ) Neurologic: positive: education counselor II-XII NML intact, Fully Oriented, Alert, Normal Response, Respond to painful stimul (upper and lower extremities ), Responsive. negative: Motor Strength 5/5 (upper and lower 4/4), Facial Droop, Numbness, Sensory Deficit (upper and lower extremities) Deep Tendon Reflexes: Knee (R): 3+, Bicep (L): 3+ Procedures - Consent Consent obtained: From Patient - Splinting Sling: Yes (left ) Medical Decision Making - Medical Decision Making 08/07/17 14:28 Patient is a 41 year old female sent here from [facility] rehabilitation due to patient tripping over edge of bed falling hitting her left shoulder left side of her face and head and hitting her right lower anterior leg on something unsure what. Patient reports having a bruise and slight tenderness of her right lower leg that is aching, lower back pain without radiation down legs or any incontinency or saddle anesthesia. He has a history of GERD, gastric bypass, renal calculi, chronic lower back pain, and iron deficiency anemia IBS, renal calculi, bipolar d/o and alcohol and cocaine use disorder here. Denies any nausea, vomiting, or any change in vision or level of alertness, dizziness or hemotympanum in or headache. Patient does report tenderness to her left side of her face however patient also has a toothache on left side. Patient does not have any facial swelling. He does not have any trismus. He reports having pain in her left shoulder and lower back that is currently an 8 out of 10 aching in nature. Patient denies receiving anything for pain prior to arrival here. Patient denies any chance of had tubal ligation. Fall left shoulder pain lower back pain worse since fall head injury closed r/o intracranial bleed rt. lower anterior leg pain PLAN: CT of head without contrast old volume loss that is more prominent in the posterior fossa of uncertain etiology and clinical significance. No acute intracranial pathology is identified. Correlate clinically to determine further evaluation and follow-up. Per Dr. Freedom maradiaga left shoulder possible acromion clavicular separation injury. Afocal partially sclerotic lesion is noted within the proximal humerus per Dr. Maravilla acetaminophen 1000 mg po 08/07/17 15:25 ask nurse ERICA Luu to bring pt. fast track waiting area to be reevaluated in told of results of her shoulder x-ray and a CAT scan of her head nurse told me that patient had eloped. According to security [place] patient told them she was not a patient and pt. had walked up ramp. Iza Charge nurse notififed that pt. had eloped, she will call [facility] to inform them 08/07/17 15:30 08/07/17 15:47 08/07/17 16:28 pt. returned 08/07/17 16:36 sling applied to left arm [facility] called to inform them that pt. had returned, spoke Lia Eason RN will call speak to MD on the floor and call use back pt did not have on ID bands, asked why she removed them, said she was told by the nurse to remove them. Asked why she walked up the ramp, she denies walking up ramp said she went to call her mother. ortho follow up as soon as possible 08/07/17 16:40 08/07/17 16:45 08/07/17 17:00 [facility] called back, since they did not call back, spoke to Zander Bruner RN he said to come back by [facility]. She will be re-evaluated there. Advised him of findings of CT of head without contrast and left shoulder xray, and need to follow up with ortho acetaminophen 650 mg as needed for pain 08/07/17 19:45 pt c/o pain lower back, left shoulder acetaminophen 650 mg po now *DC/Admit/Observation/Transfer Diagnosis at time of Disposition: Acute exacerbation of chronic low back pain Fall Qualifiers: Encounter type: initial encounter Qualified Code(s): W19.XXXA - Unspecified fall, initial encounter Shoulder separation Qualifiers: Encounter type: initial encounter Laterality: left Qualified Code(s): S43.005A - Unspecified dislocation of left shoulder joint, initial encounter - Discharge Dispostion Disposition: TRANSFER ACUTE CARE/OTHER HOSP Condition at time of disposition: Stable - Referrals Referrals: Miguel Wallace MD [Staff Physician] - - Patient Instructions Additional Instructions: Follow-up with orthopedist for further evaluation as soon as possible of left shoulder pain and lower back pain Avoid any strenuous activities or exercise Wear sling during the day to left arm may take off at night and as tolerated acetaminophen 650 mg every 6 hrs prn pain Emergency room if symptoms worsen any weakness or numbness of legs or any incontinency or any numbness of private area or worsening lower back pain, dizziness, severe headache, change in vision or level of alertness Patient voiced understanding of discharge instructions and all questions were answered Instructions given to rehabilitation [facility]
[2017-08-07] MEDS ORDERED: ACETAMINOPHEN 500 MG TABLET (FP) PO ONE (14:16)
[2017-08-07] MEDS ORDERED: ACETAMINOPHEN 500 MG TABLET (FP) ONE (14:18)
[2017-08-07] MEDS ORDERED: KETOROLAC TROMETHAMINE 60 MG/2 ML VIAL IM ONE (16:51)
[2017-08-07] MEDS ORDERED: KETOROLAC TROMETHAMINE 60 MG/2 ML VIAL ONE (16:57)
[2017-08-07] MEDS ORDERED: ACETAMINOPHEN 325 MG TABLET (FP) PO ONE (19:46)
[2017-08-07] MEDS ORDERED: ACETAMINOPHEN 325 MG TABLET (FP) ONE (19:54)
== END 2017-08-07 21:24 | disposition other institution (70) ==
LOC: JERFT 12:40
PROC: 3E0233Z Introduction of Anti-inflammatory into Muscle, Percutaneous Approach (ICD-10-PCS; principal; 2017-08-07)
DX: S09.8XXA Other specified injuries of head, initial encounter (principal); M54.5 Low back pain; S43.005A Unspecified dislocation of left shoulder joint, initial encounter; W01.190A Fall on same level from slipping, tripping and stumbling with subsequent striking against furniture, initial encounter; Y93.89 Activity, other specified; Y92.230 Patient room in hospital as the place of occurrence of the external cause; Y99.8 Other external cause status; F10.10 Alcohol abuse, uncomplicated; F12.10 Cannabis abuse, uncomplicated; F17.210 Nicotine dependence, cigarettes, uncomplicated; F31.9 Bipolar disorder, unspecified; D64.9 Anemia, unspecified; K21.9 Gastro-esophageal reflux disease without esophagitis; Z09 Encounter for follow-up examination after completed treatment for conditions other than malignant neoplasm; Z87.442 Personal history of urinary calculi; Z98.84 Bariatric surgery status
CPT/HCPCS: 70450-TC; 73030-TC-LT; 96372; 99281-25

== ENCOUNTER 2019-05-30 13:53 | Inpatient (IN) | payer OTHER ==
[2019-05-30 18:40] VITALS: BMI 26.6
--- NOTE | 2019-05-30 19:43 | HP ---
CIWA Score Nausea/Vomitin Muscle Tremors: 2 Anxiety: 3 Agitation: 3 Paroxysmal Sweats: 2 Orientation: 0-Oriented Tacttile Disturbances: 0-None Auditory Disturbances: 0-None Visual Disturbances: 0-None Headache: 2-Mild CIWA-Ar Total Score: 14 - Admission Criteria OASAS Guidelines: Admission for Medically Managed Detox: Requires at least one of the followin. CIWA greater than 12 2. Seizures within the past 24 hours 3. Delirium tremens within the past 24 hours 4. Hallucinations within the past 24 hours 5. Acute intervention needed for co occurring medical disorder 6. Acute intervention needed for co occurring psychiatric disorder 7. Severe withdrawal that cannot be handled at a lower level of care (continued vomiting, continued diarrhea, abnormal vital signs) requiring intravenous medication and/or fluids 8. Admission ROS [facility] Chief Complaint: alcohol detox Allergies/Adverse Reactions: Allergies Allergy/AdvReac Type Severity Reaction Status Date / Time No Known Drug Allergies Allergy Verified 08/08/17 11:25 oxycodone AdvReac Intermediate Itching Verified 05/30/19 18:30 History of Present Illness: Patient is a 43 yo F with a PMHx iron deficiency, bipolar disorder, depression, presenting here for alcohol detox and rehab. Last drink this morning- 1 pint of liquor. Has been drinking heavy since 2010 since her daughter got at an early age. Says she wants to change her life and needs help. Denies other drug use. currently not working. smokes 1 PPD. no history of seizures. no black outs. Smokes marijuana occasionally. - Ebola screening Have you traveled outside of the country in the last 21 days: No Have you had contact with anyone from an Ebola affected area: No - Review of Systems Constitutional: Chills, Loss of Appetite, Unintentional Wgt. Loss Respiratory: denies: Cough, SOB with Exertion Cardiac: denies: Chest Pain, Palpitations Patient History - Patient Medical History Hx Anemia: Yes Hx Asthma: No Hx Chronic Obstructive Pulmonary Disease (COPD): No Hx Cancer: No Hx Cardiac Disorders: No Hx Congestive Heart Failure: No Hx Hypertension: No Hx Hypercholesterolemia: No Hx Pacemaker: No HX Cerebrovascular Accident: No Hx Seizures: No Hx Dementia: No Hx Diabetes: No Hx Gastrointestinal Disorders: Yes (gerd) Hx Liver Disease: No Hx Genitourinary Disorders: No Hx Sexually Transmitted Disorders: No Hx Renal Disease (ESRD): No Hx Thyroid Disease: No Hx Human Immunodeficiency Virus (HIV): No Hx Hepatitis C: No Hx Depression: No Hx Suicide Attempt: Yes (cutting wrist Jun 2017 and OD on pills 2010) Hx Bipolar Disorder: Yes Hx Schizophrenia: No - Patient Surgical History Past Surgical History: Yes Hx Neurologic Surgery: No Hx Cataract Extraction: No Hx Cardiac Surgery: No Hx Lung Surgery: No Hx Breast Surgery: No Hx Breast Biopsy: No Hx Abdominal Surgery: Yes (gastric bypass 2006) Hx Appendectomy: No Hx Cholecystectomy: No Hx Genitourinary Surgery: No Hx Section: No Hx Orthopedic Surgery: Yes (2011 lumbar) Hx Hysterectomy: No Anesthesia Reaction: No - PPD History Date: 08/05/17 Results: 0mm - Reproductive History Last Menstrual Period: 07/26/17 - Smoking Cessation Smoking history: Current every day smoker Have you smoked in the past 12 months: No Aproximately how many cigarettes per day: 20 Cigars Per Day: 0 Hx Chewing Tobacco Use: No Initiated information on smoking cessation: Yes 'Breaking Loose' booklet given: 05/30/19 - Substances abused Alcohol Substance route: Oral Frequency: Daily Amount used: 1/2 gallon [place] Age of first use: 26 Date of last use: 05/30/19 Family Disease History - Family Disease History Family Disease History: Diabetes: Father (), Heart Disease: Father, Mother, [place]: Sister, Other: Father Admission Physical Exam BHS - Vital Signs Vital Signs: Vital Signs - 24 hr 05/30/19 18:35 Temperature 99.5 F Pulse Rate 98 H Respiratory 18 Rate Blood Pressure 118/77 - Physical General Appearance: Yes: Anxious HEENTM: Yes: EOMI Respiratory: Yes: Lungs Clear, No Respiratory Distress, No Accessory Muscle Use Cardiology: Yes: Regular Rhythm, S1, S2 Abdominal: Yes: Non Tender, Soft Extremities: Yes: Swelling, Other (varicose veins) - Diagnostic (1) Alcohol dependence Current Visit: No Status: Chronic (2) Anemia Current Visit: No Status: Chronic Qualifiers: Anemia type: iron deficiency Iron deficiency anemia type: inadequate dietary iron intake Qualified Code(s): D50.8 - Other iron deficiency anemias (3) Bipolar II disorder Current Visit: No Status: Chronic (4) Chronic back pain Current Visit: No Status: Chronic Qualifiers: Back pain location: low back pain Back pain laterality: bilateral Sciatica presence: without sciatica Qualified Code(s): M54.5 - Low back pain Breathalyzer - Breathalyzer Breathalyzer: 0.105 Urine Drug Screen - Test Device Lot number: [id number] Expiration date: 03/11/21 - Control Is test valid?: Yes - Results Drug screen NEGATIVE: No Urine drug screen results: THC-Marijuana Inpatient Rehab Admission - Rehab Decision to Admit Inpatient rehab admission?: No
[2019-05-30] MEDS ORDERED: IBUPROFEN 400 MG TABLET (FP) PO PRN (19:50)
[2019-05-30] MEDS ORDERED: MAGNESIUM CITRATE 300 ML BOTTLE PO PRN (19:50)
[2019-05-30] MEDS ORDERED: MENTHOL/PHENOL 1 EACH UD MM PRN (19:50)
[2019-05-30] MEDS ORDERED: chlordiazePOXIDE HCL 25 MG CAPSULE PO PRN (19:50)
[2019-05-30] MEDS ORDERED: MAGNESIUM HYDROX 2400MG/30ML ORAL SUSPENSION 30 ML CUP PO PRN (19:50)
[2019-05-30] MEDS ORDERED: ACETAMINOPHEN 325 MG TABLET (FP) PO PRN (19:50)
[2019-05-30] MEDS ORDERED: BISMUTH SUBSALICYLATE 524 MG/30 ML UD PO PRN (19:50)
[2019-05-30] MEDS ORDERED: MAG HYDROX/AL HYDROX/SIMETH 30 ML UNIT-DOSE CUP PO PRN (19:50)
--- NOTE | 2019-05-30 19:53 | PN ---
Teaching Attending Note Name of Resident: Patricia Marquez ATTENDING PHYSICIAN STATEMENT I saw and evaluated the patient. I reviewed the resident's note and discussed the case with the resident. I agree with the resident's findings and plan as documented. SUBJECTIVE: 43 yo with AUD. h/o bipolar. Has been drinking heavily for the last several years. CIWA 13 OBJECTIVE: Vital Signs - 24 hr 05/30/19 18:35 Temperature 99.5 F Pulse Rate 98 H Respiratory 18 Rate Blood Pressure 118/77 anxious, tremulous alert and oriented ASSESSMENT AND PLAN: AUD- detox protocol with librium
[2019-05-30] MEDS: chlordiazePOXIDE HCL 25 MG CAPSULE PO SCH (22:17)
[2019-05-30] MEDS: METHOCARBAMOL 500 MG TABLET PO PRN (22:17)
[2019-05-30] MEDS: QUEtiapine FUMARATE 100 MG TABLET (FP) PO SCH (22:17)
[2019-05-30] MEDS: THIAMINE HCL 100 MG TABLET (FP) PO SCH (22:18)
[2019-05-30] MEDS: NICOTINE 21 MG/24 HOURS TOPICAL PATCH TD SCH (22:19)
[2019-05-31] MEDS: METHOCARBAMOL 500 MG TABLET PO PRN (05:44)
[2019-05-31] MEDS: chlordiazePOXIDE HCL 25 MG CAPSULE PO SCH ×4 (05:44→22:18)
[2019-05-31] MEDS: PRENATAL VITAMINS W/ FOLIC ACID TABLET (FP) PO SCH (10:14)
[2019-05-31] MEDS: NICOTINE 21 MG/24 HOURS TOPICAL PATCH TD SCH (10:14)
[2019-05-31] MEDS ORDERED: BACLOFEN 10 MG TABLET (FP) PO ONE (10:19)
[2019-05-31] MEDS ORDERED: PANTOPRAZOLE 40 MG TABLET (FP) PO ONE (10:30)
[2019-05-31 10:57] LABS: ALBUMIN 2.6 g/dl (3.4-5.0); BILIRUBIN,TOTAL 0.3 mg/dL (0.2-1); BLOOD UREA NITROGEN 8.3 mg/dL (7-18); CALCIUM 8.1 mg/dL (8.5-10.1); CREATININE 0.6 mg/dL (0.55-1.3); POTASSIUM 4.1 mmol/L (3.5-5.1); TOT PROT 5.4 g/dl (6.4-8.2)
[2019-05-31 11:05] LABS: HEMATOCRIT 29.2 % (32.4-45.2); HEMOGLOBIN 9.7 GM/dL (10.7-15.3); MCH 27.9 pg (25.7-33.7); MCHC 33.2 g/dl (32.0-36.0); MEAN CELL VOLUME 84.1 fl (80-96); MEAN PLT VOLUME 7.8 fl (7.5-11.1); PLATELET COUNT 420 K/MM3 (134-434); RBC 3.47 M/mm3 (3.60-5.2); RDW 17.2 % (11.6-15.6); WHITE BLOOD COUNT 3.6 K/mm3 (4.0-10.0)
[2019-05-31] MEDS ORDERED: NICOTINE 21 MG/24 HOURS TOPICAL PATCH TD ONE (11:20)
[2019-05-31] MEDS: METHYL SALICYLATE/MENTHOL OINT 30 GM TUBE TP SCH ×2 (11:24→22:38)
--- NOTE | 2019-05-31 12:38 | PN ---
S CIWA - CIWA Score Nausea/Vomitin-No Nausea/No Vomiting Muscle Tremors: 3 Anxiety: 3 Agitation: 3 Paroxysmal Sweats: 3 Orientation: 0-Oriented Tacttile Disturbances: 0-None Auditory Disturbances: 0-None Visual Disturbances: 0-None Headache: 0-None Present CIWA-Ar Total Score: 12 BHS Progress Note (SOAP) Subjective: sweats chills muscle cramping shakes acid reflux agitation Objective: 05/31/19 12:36 Vital Signs Temperature 98.8 F 05/31/19 09:40 Pulse Rate 82 05/31/19 09:40 Respiratory Rate 18 05/31/19 09:40 Blood Pressure 113/77 05/31/19 09:40 O2 Sat by Pulse Oximetry (%) Laboratory Tests 05/30/19 05/31/19 05/31/19 19:13 07:50 07:50 WBC 3.6 L RBC 3.47 L Hgb 9.7 L Hct 29.2 L D MCV 84.1 MCH 27.9 MCHC 33.2 RDW 17.2 H Plt Count 420 MPV 7.8 Sodium 136 Potassium 4.1 Chloride 101 Carbon Dioxide 29 Anion Gap 6 L BUN 8.3 Creatinine 0.6 Est GFR (CKD-EPI)AfAm 130.30 Est GFR (CKD-EPI)NonAf 112.42 Random Glucose 73 L Calcium 8.1 L Total Bilirubin 0.3 AST 28 ALT 18 Alkaline Phosphatase 60 Total Protein 5.4 L Albumin 2.6 L POC Urine HCG, Qual Negative labs noted low H:H aaox3 ambulating no acute distress Assessment: 05/31/19 12:36 withdrawal sx Plan: continue detox increase fluids baclofen tid analgesic balm motrin 600mg prn protonix 40mg daily iron supplement
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
[2019-05-31] MEDS: hydrOXYzine PAMOATE 25 MG CAPSULE (FP) PO PRN (13:59)
[2019-05-31] MEDS: BACLOFEN 10 MG TABLET (FP) PO SCH ×2 (13:59→22:18)
[2019-05-31] MEDS: FERROUS SO4 325 MG TABLET (FP) PO SCH (17:09)
[2019-05-31] MEDS: IBUPROFEN 600 MG TABLET (FP) PO PRN (17:09)
[2019-05-31] MEDS: NICOTINE POLACRILEX 4 MG GUM BUC PRN ×2 (17:14→19:17)
[2019-05-31] MEDS: THIAMINE HCL 100 MG TABLET (FP) PO SCH (22:17)
[2019-05-31] MEDS: QUEtiapine FUMARATE 100 MG TABLET (FP) PO SCH (22:18)
[2019-06-01] MEDS: IBUPROFEN 600 MG TABLET (FP) PO PRN ×3 (01:17→17:14)
[2019-06-01] MEDS: chlordiazePOXIDE HCL 25 MG CAPSULE PO SCH ×4 (06:18→22:02)
[2019-06-01] MEDS: BACLOFEN 10 MG TABLET (FP) PO SCH ×3 (06:18→22:03)
[2019-06-01] MEDS: ACETAMINOPHEN 325 MG TABLET (FP) PO PRN ×3 (06:20→20:43)
[2019-06-01] MEDS: FERROUS SO4 325 MG TABLET (FP) PO SCH ×3 (07:08→18:11)
[2019-06-01] MEDS: hydrOXYzine PAMOATE 25 MG CAPSULE (FP) PO PRN (10:47)
[2019-06-01] MEDS: PRENATAL VITAMINS W/ FOLIC ACID TABLET (FP) PO SCH (10:47)
[2019-06-01] MEDS: PANTOPRAZOLE 40 MG TABLET (FP) PO SCH (10:50)
[2019-06-01] MEDS: NICOTINE 21 MG/24 HOURS TOPICAL PATCH TD SCH (10:50)
[2019-06-01] MEDS: METHYL SALICYLATE/MENTHOL OINT 30 GM TUBE TP SCH ×2 (10:50→22:47)
[2019-06-01] MEDS: SENNOSIDES/DOCUSATE COMBO (SENNA PLUS) TABLET (UD) PO SCH ×2 (12:27→22:02)
--- NOTE | 2019-06-01 14:29 | PN ---
[facility] CIWA - CIWA Score Nausea/Vomitin-No Nausea/No Vomiting Muscle Tremors: 2 Anxiety: 3 Agitation: 2 Paroxysmal Sweats: 2 Orientation: 0-Oriented Tacttile Disturbances: 2-Mild Itch/Numbness/Burn Auditory Disturbances: 1-Very Mild Visual Disturbances: 0-None Headache: 0-None Present CIWA-Ar Total Score: 12 S Progress Note (SOAP) Subjective: Tremors, Sweating, Body Aches, Anxious, Constipation. Objective: PATIENT A & O X 3, OBSERVED AMBULATING ON UNIT. IN NO ACUTE DISTRESS. 06/01/19 14:25 Vital Signs Temperature 97.2 F L 06/01/19 13:49 Pulse Rate 84 06/01/19 13:49 Respiratory Rate 18 06/01/19 13:49 Blood Pressure 123/72 06/01/19 13:49 O2 Sat by Pulse Oximetry (%) Laboratory Tests 05/30/19 05/31/19 05/31/19 19:13 07:50 07:50 WBC 3.6 L RBC 3.47 L Hgb 9.7 L Hct 29.2 L D MCV 84.1 MCH 27.9 MCHC 33.2 RDW 17.2 H Plt Count 420 MPV 7.8 Sodium 136 Potassium 4.1 Chloride 101 Carbon Dioxide 29 Anion Gap 6 L BUN 8.3 Creatinine 0.6 Est GFR (CKD-EPI)AfAm 130.30 Est GFR (CKD-EPI)NonAf 112.42 Random Glucose 73 L Calcium 8.1 L Total Bilirubin 0.3 AST 28 ALT 18 Alkaline Phosphatase 60 Total Protein 5.4 L Albumin 2.6 L POC Urine HCG, Qual Negative RPR Titer 05/31/19 07:50 WBC RBC Hgb Hct MCV MCH MCHC RDW Plt Count MPV Sodium Potassium Chloride Carbon Dioxide Anion Gap BUN Creatinine Est GFR (CKD-EPI)AfAm Est GFR (CKD-EPI)NonAf Random Glucose Calcium Total Bilirubin AST ALT Alkaline Phosphatase Total Protein Albumin POC Urine HCG, Qual RPR Titer Nonreactive LABS NOTED. PATIENT REPORTS HISTORY OF ANEMIA, FOR WHICH SHE WAS TREATED WITH IRON SUPPLEMENT IN THE PAST. RESULT OF ADMISSION HIV AB TEST PENDING. PATIENT HAS HAD LOW WBC LEVELS ON PREVIOUS ADMISSIONS. 06/01/19 14:26 Assessment: 06/01/19 14:27 WITHDRAWAL SYMPTOMS. ANEMIA. LEUKOPENIA. 06/01/19 14:29 Plan: CONTINUE DETOX. INCREASE DAILY PO WATER INTAKE. SENNA-COLACE PO FOR CONSTIPATION.
[2019-06-01] MEDS: NICOTINE POLACRILEX 4 MG GUM BUC PRN (17:16)
[2019-06-01] MEDS: THIAMINE HCL 100 MG TABLET (FP) PO SCH (22:02)
[2019-06-01] MEDS: MELATONIN 5 MG TABLETS PO PRN (22:02)
[2019-06-01] MEDS: QUEtiapine FUMARATE 100 MG TABLET (FP) PO SCH (22:03)
[2019-06-02] MEDS ORDERED: chlordiazePOXIDE HCL 10 MG CAPSULE PO PRN
[2019-06-02] MEDS: chlordiazePOXIDE HCL 10 MG CAPSULE PO SCH ×4 (04:50→22:38)
[2019-06-02] MEDS: IBUPROFEN 600 MG TABLET (FP) PO PRN (04:51)
[2019-06-02] MEDS: BACLOFEN 10 MG TABLET (FP) PO SCH (06:51)
[2019-06-02] MEDS: FERROUS SO4 325 MG TABLET (FP) PO SCH ×3 (07:19→17:42)
[2019-06-02] MEDS: ACETAMINOPHEN 325 MG TABLET (FP) PO PRN (08:24)
[2019-06-02] MEDS: NICOTINE POLACRILEX 4 MG GUM BUC PRN ×4 (08:27→22:40)
[2019-06-02] MEDS: METHYL SALICYLATE/MENTHOL OINT 30 GM TUBE TP SCH ×2 (10:49→22:40)
[2019-06-02] MEDS: PANTOPRAZOLE 40 MG TABLET (FP) PO SCH (10:49)
[2019-06-02] MEDS: PRENATAL VITAMINS W/ FOLIC ACID TABLET (FP) PO SCH (10:49)
[2019-06-02] MEDS: NICOTINE 21 MG/24 HOURS TOPICAL PATCH TD SCH (10:50)
[2019-06-02] MEDS: METHOCARBAMOL 750 MG TABLET PO SCH ×4 (10:50→22:37)
[2019-06-02] MEDS: SENNOSIDES/DOCUSATE COMBO (SENNA PLUS) TABLET (UD) PO SCH ×2 (10:50→22:37)
[2019-06-02] MEDS: LIDOCAINE 5% TOPICAL PATCH TP SCH (10:51)
[2019-06-02] MEDS: hydrOXYzine PAMOATE 25 MG CAPSULE (FP) PO PRN (10:52)
--- NOTE | 2019-06-02 11:19 | PN ---
S CIWA - CIWA Score Nausea/Vomitin-No Nausea/No Vomiting Muscle Tremors: 3 Anxiety: 2 Agitation: 3 Paroxysmal Sweats: 2 Orientation: 0-Oriented Tacttile Disturbances: 0-None Auditory Disturbances: 0-None Visual Disturbances: 0-None Headache: 0-None Present CIWA-Ar Total Score: 10 S Progress Note (SOAP) Subjective: chronic low back and leg pain insomnia i need to see dietary anxiety Objective: 06/02/19 11:19 Vital Signs Temperature 97.3 F L 06/02/19 09:46 Pulse Rate 103 H 06/02/19 09:46 Respiratory Rate 17 06/02/19 09:46 Blood Pressure 135/73 06/02/19 09:46 O2 Sat by Pulse Oximetry (%) aaox3 ambulating no acute distress Assessment: 06/02/19 11:20 withdrawal sx Plan: continue detox increase fluids continue with iron supplement as ordered roboxin 750mg prn motrin 800mg prn lidocaine patches
--- NOTE | 2019-06-02 12:06 | PN ---
[facility] Progress Note Note: Patient reports feeling very anxious and sleeping poorly despita taking Vistaril 25 mg po Q 6hrs and Seroquel 100 mg/hs. Discussed with patient about increasing Vistaril dosage to 50 mg po 4hrs
[2019-06-02] MEDS: hydrOXYzine PAMOATE 50 MG CAPSULE (FP) PO PRN ×3 (12:12→22:37)
[2019-06-02] MEDS: IBUPROFEN 400 MG TABLET (FP) PO PRN ×2 (12:16→17:41)
[2019-06-02] MEDS: THIAMINE HCL 100 MG TABLET (FP) PO SCH (22:37)
[2019-06-02] MEDS: QUEtiapine FUMARATE 100 MG TABLET (FP) PO SCH (22:37)
[2019-06-02] MEDS: LIDOCAINE PATCH REMOVAL MC SCH (22:39)
[2019-06-03] MEDS: chlordiazePOXIDE HCL 10 MG CAPSULE PO SCH ×2 (04:30→16:58)
[2019-06-03] MEDS: IBUPROFEN 400 MG TABLET (FP) PO PRN (04:32)
[2019-06-03] MEDS: NICOTINE POLACRILEX 4 MG GUM BUC PRN ×4 (04:36→22:12)
[2019-06-03] MEDS: PANTOPRAZOLE 40 MG TABLET (FP) PO SCH (06:52)
[2019-06-03] MEDS: FERROUS SO4 325 MG TABLET (FP) PO SCH ×3 (07:00→16:58)
[2019-06-03] MEDS: ACETAMINOPHEN 325 MG TABLET (FP) PO PRN ×2 (07:15→20:28)
[2019-06-03] MEDS: METHYL SALICYLATE/MENTHOL OINT 30 GM TUBE TP SCH ×2 (10:20→22:10)
[2019-06-03] MEDS: LIDOCAINE 5% TOPICAL PATCH TP SCH (10:20)
[2019-06-03] MEDS: NICOTINE 21 MG/24 HOURS TOPICAL PATCH TD SCH (10:20)
[2019-06-03] MEDS: PRENATAL VITAMINS W/ FOLIC ACID TABLET (FP) PO SCH (10:21)
[2019-06-03] MEDS: METHOCARBAMOL 750 MG TABLET PO SCH ×4 (10:21→22:10)
[2019-06-03] MEDS: SENNOSIDES/DOCUSATE COMBO (SENNA PLUS) TABLET (UD) PO SCH ×2 (10:21→22:10)
[2019-06-03] MEDS: hydrOXYzine PAMOATE 50 MG CAPSULE (FP) PO PRN ×2 (10:24→20:28)
--- NOTE | 2019-06-03 13:18 | PN ---
S CIWA - CIWA Score Nausea/Vomitin-No Nausea/No Vomiting Muscle Tremors: 2 Anxiety: 1-Mildly Anxious Agitation: 0-Normal Activity Paroxysmal Sweats: 1-Minimal Palms Moist Orientation: 0-Oriented Tacttile Disturbances: 0-None Auditory Disturbances: 0-None Visual Disturbances: 0-None Headache: 0-None Present CIWA-Ar Total Score: 4 BHS Progress Note (SOAP) Subjective: chronic low back pain anxiety Objective: 06/03/19 13:17 Vital Signs Temperature 98.8 F 06/03/19 13:12 Pulse Rate 92 H 06/03/19 13:12 Respiratory Rate 16 06/03/19 13:12 Blood Pressure 148/98 06/03/19 13:12 O2 Sat by Pulse Oximetry (%) aaox3 ambulating no acute distress Assessment: 06/03/19 13:18 mild withdrawal sx Plan: continue detox naproxen 500mg bid d/c in am
[2019-06-03] MEDS ORDERED: NAPROXEN 500 MG TABLET (FP) PO ONE (13:30)
[2019-06-03] MEDS ORDERED: NAPROXEN 500 MG TABLET (FP) PO SCH (22:00)
[2019-06-03] MEDS: QUEtiapine FUMARATE 100 MG TABLET (FP) PO SCH (22:09)
[2019-06-03] MEDS: THIAMINE HCL 100 MG TABLET (FP) PO SCH (22:09)
[2019-06-03] MEDS: LIDOCAINE PATCH REMOVAL MC SCH (22:10)
[2019-06-03] MEDS: MELATONIN 5 MG TABLETS PO PRN (22:11)
[2019-06-04] MEDS: hydrOXYzine PAMOATE 50 MG CAPSULE (FP) PO PRN (04:14)
[2019-06-04] MEDS: ACETAMINOPHEN 325 MG TABLET (FP) PO PRN (04:15)
[2019-06-04] MEDS ORDERED: chlordiazePOXIDE HCL 10 MG CAPSULE PO ONE (05:00)
[2019-06-04] MEDS: PANTOPRAZOLE 40 MG TABLET (FP) PO SCH (06:57)
[2019-06-04] MEDS: NICOTINE POLACRILEX 4 MG GUM BUC PRN (07:02)
[2019-06-04 07:59] VITALS: BP 114/72; PULSE 57; TEMP 97.5
--- NOTE | 2019-06-04 13:56 | DS ---
[facility] Detox Discharge Summary Admission Date: 05/30/19 Discharge Date: 06/04/19 - History Present History: Alcohol Dependence Additional Comments: Pt is medically cleared and is discharged today. Pt has completed her detox protocol. Pt is encouraged to follow-up with [facility] outpatient program and also to follow-up with her PMD. Pt verbalized understanding. Pt is alert and oriented x3 and in no respiratory distress. Pertinent Past History: H/O anemia, GERD, and alcohol use disorder. - Physical Exam Results Vital Signs: Vital Signs Temperature 97.5 F L 06/04/19 06:00 Pulse Rate 57 L 06/04/19 06:00 Respiratory Rate 18 06/04/19 06:00 Blood Pressure 114/72 06/04/19 06:00 O2 Sat by Pulse Oximetry (%) Vital Signs 06/04/19 06:00 Temperature 97.5 F L Pulse Rate 57 L Respiratory 18 Rate Blood Pressure 114/72 Lab Results WBC 3.6 K/mm3 (4.0-10.0) L 05/31/19 07:50 RBC 3.47 M/mm3 (3.60-5.2) L 05/31/19 07:50 Hgb 9.7 GM/dL (10.7-15.3) L 05/31/19 07:50 Hct 29.2 % (32.4-45.2) L D 05/31/19 07:50 MCV 84.1 fl (80-96) 05/31/19 07:50 MCHC 33.2 g/dl (32.0-36.0) 05/31/19 07:50 RDW 17.2 % (11.6-15.6) H 05/31/19 07:50 Plt Count 420 K/MM3 (134-434) 05/31/19 07:50 Sodium 136 mmol/L (136-145) 05/31/19 07:50 Potassium 4.1 mmol/L (3.5-5.1) 05/31/19 07:50 Chloride 101 mmol/L (98-107) 05/31/19 07:50 Carbon Dioxide 29 mmol/L (21-32) 05/31/19 07:50 Anion Gap 6 MMOL/L (8-16) L 05/31/19 07:50 BUN 8.3 mg/dL (7-18) 05/31/19 07:50 Creatinine 0.6 mg/dL (0.55-1.3) 05/31/19 07:50 Random Glucose 73 mg/dL (74-106) L 05/31/19 07:50 Calcium 8.1 mg/dL (8.5-10.1) L 05/31/19 07:50 Labs noted. Pertinent Admission Physical Exam Findings: withdrawal symptoms. - Treatment Hospital Course: Detox Protocol Followed, Detoxed Safely, Responded well, Discharged Condition Good - Medication Discharge Medications: Ambulatory Orders traZODone HCL [Trazodone HCl] 100 mg PO HS 08/06/17 Quetiapine Fumarate [Seroquel] 100 mg PO HS #30 tablet 08/10/17 - Diagnosis (1) Anemia Status: Acute (2) Chronic back pain Status: Chronic Qualifiers: Back pain location: low back pain Back pain laterality: bilateral Sciatica presence: without sciatica Qualified Code(s): M54.5 - Low back pain (3) Cocaine dependence Status: Chronic (4) GERD (gastroesophageal reflux disease) Status: Chronic Qualifiers: Esophagitis presence: without esophagitis Qualified Code(s): K21.9 - Gastro -esophageal reflux disease without esophagitis (5) Irritable bowel syndrome (IBS) Status: Chronic Qualifiers: Irritable bowel syndrome type: with diarrhea Qualified Code(s): K58.0 - Irritable bowel syndrome with diarrhea (6) Nicotine dependence Status: Chronic - AMA Did Patient Leave Against Medical Advice: No BHS CIWA - CIWA Score Nausea/Vomitin-No Nausea/No Vomiting Muscle Tremors: None Anxiety: 1-Mildly Anxious Agitation: 0-Normal Activity Paroxysmal Sweats: 2 Orientation: 0-Oriented Tacttile Disturbances: 0-None Auditory Disturbances: 0-None Visual Disturbances: 0-None Headache: 0-None Present CIWA-Ar Total Score: 3
== END 2019-06-04 08:41 | disposition home or self-care (01) | DRG 897 ==
LOC: YASAS 13:53 → Y6N 20:57
PROVIDERS: ADMIT Surgery; ATTEND Surgery
PROC: HZ2ZZZZ Detoxification Services for Substance Abuse Treatment (ICD-10-PCS; principal; 2019-05-30)
DX: F10.230 Alcohol dependence with withdrawal, uncomplicated (principal); F14.20 Cocaine dependence, uncomplicated; F17.210 Nicotine dependence, cigarettes, uncomplicated; F10.282 Alcohol dependence with alcohol-induced sleep disorder; D50.8 Other iron deficiency anemias; D72.819 Decreased white blood cell count, unspecified; K59.00 Constipation, unspecified; M54.5 Low back pain; G89.29 Other chronic pain; Z86.59 Personal history of other mental and behavioral disorders; Z91.5 Personal history of self-harm
CPT/HCPCS: 36415; 80053; 81025; 85027; 86593; 87389; J0475